=== PATIENT | male | born 1965 | race Caucasian/White ===

== ENCOUNTER 2017-03-02 10:24 | Emergency (ER) | payer BC ==
--- NOTE | 2017-03-02 10:54 | ERPHSYRPT ---
- History of Present Illness Time Seen by Provider: 03/02/17 10:34 Historian: patient Exam Limitations: no limitations Physician History: The patient is a 51-year-old male who suddenly became dizzy and slightly nauseated while working at his desk less than an hour ago. He got up, had a drink of water, and became sweaty. He did not vomit. Every time he stands up he feels unsteady. He does not feel like he is going to pass out. He also began to have a small amount of pinpoint chest pain in the left chest. When he puts his finger on the pain site, the pain goes away. He denies any viral illness at this time. He denies shortness of breath. His past medical history is significant for hypertension. Timing/Duration: hour(s) (1) Activities at Onset: other (sitting) Quality: stabbing Location: central Chest Pain Radiation: no radiation Severity of Pain-Max: mild Severity of Pain-Current: mild Modifying Factors: Improves With: nothing Associated Symptoms: nausea, dizziness, No palpitations, No shortness of breath Prior Chest Pain/Cardiac Workup: no prior chest pain Nitro Today/Relief: no nitro taken today Aspirin Treatment Today: no aspirin today Allergies/Adverse Reactions: No Known Drug Allergies Allergy (Verified 03/02/17 10:25) Home Medications: Naproxen 500 mg [Naprosyn 500 MG] mg PO BID 10/25/12 [History] Amlodipine Besylate/Benazepril [Amlodipine-Benazepril 2.5-10] 03/02/17 [History ] Hx Tetanus, Diphtheria Vaccination/Date Given: No - Review of Systems Constitutional: No Fever, No Chills Eyes: No Symptoms Ears, Nose, & Throat: No Symptoms Respiratory: No Cough, No Dyspnea Cardiac: Chest Pain Abdominal/Gastrointestinal: No Abdominal Pain, No Nausea, No Vomiting, No Diarrhea Genitourinary Symptoms: No Dysuria Musculoskeletal: No Back Pain, No Neck Pain Skin: No Rash Neurological: Dizziness Psychological: No Symptoms Endocrine: No Symptoms Hematologic/Lymphatic: No Symptoms Immunological/Allergic: No Symptoms All Other Systems: Reviewed and Negative - Past Medical History Pertinent Past Medical History: Yes Cardiac History: Hypertension Musculoskeletal History: Arthritis - Past Surgical History Past Surgical History: Yes Gastrointestinal: Hernia Repair Musculoskeletal: Orthopedic Surgery Other Surgical History: Sinus surgery, shoulder surgery - Social History Smoking Status: Never smoker Exposure to second hand smoke: No Drug Use: none Patient Lives Alone: No - Nursing Vital Signs Nursing Vital Signs: Initial Vital Signs Temperature 97.3 F 03/02/17 10:28 Pulse Rate 78 03/02/17 10:28 Respiratory Rate 20 03/02/17 10:28 Blood Pressure 135/92 03/02/17 10:28 O2 Sat by Pulse Oximetry 96 03/02/17 10:28 Pain Scale Pain Intensity 8 - Physical Exam General Appearance: no apparent distress, alert Eye Exam: PERRL/EOMI, eyes nml inspection Ears, Nose, Throat Exam: normal ENT inspection, moist mucous membranes Neck Exam: normal inspection, non-tender, supple, full range of motion Respiratory Exam: chest tenderness (Mild palpation of a pinpoint area to the left central anterior chest at the site of the patient's perceived pain, causes relief of the pain.) Cardiovascular Exam: regular rate/rhythm, normal heart sounds Gastrointestinal/Abdomen Exam: soft, No tenderness, No mass Rectal Exam: not done Back Exam: normal inspection, No CVA tenderness, No vertebral tenderness Extremity Exam: normal inspection, normal range of motion Neurologic Exam: other (Minh-Hallpike test elicits dizziness with prone to sitting position. Head movement from right to left and left to right is negative.) Skin Exam: normal color, warm, dry SpO2 Interpretation: normal - Course EKG Interpreted by Me: RATE, Sinus Rhythm, NORMAL AXIS, NORMAL INTERVALS, NORMAL QRS, NORMAL ST-T - Radiology Exams Chest X-ray Interpretation: Teleradiologist Report, Negative (per Dr Salgado) Ordered Tests: Active Orders 24 hr Category Date Time Status EKG-ER Only STAT Care 03/02/17 11:12 Active IV Insertion STAT Care 03/02/17 11:12 Active CHEST 2 VIEWS (PA AND LAT) Stat Exams 03/02/17 11:13 Completed CBC W DIFF Stat Lab 03/02/17 11:12 Completed CMP Stat Lab 03/02/17 10:50 Completed TROPONIN Q3H Lab 03/02/17 10:50 Completed TROPONIN Q3H Lab 03/02/17 14:15 Ordered TROPONIN Q3H Lab 03/02/17 17:15 Ordered TROPONIN Q3H Lab 03/02/17 20:15 Ordered TROPONIN Q3H Lab 03/02/17 23:15 Ordered UA W/RFX UR CULTURE Stat Lab 03/02/17 11:13 Completed Medication Summary Discontinued Medications Generic Name Dose Route Start Last Admin Trade Name Bo PRN Reason Stop Dose Admin Ondansetron HCl 4 mg 03/02/17 11:12 03/02/17 11:17 Zofran 4 Mg/2 Ml Vial IV 03/02/17 11:13 4 mg STAT ONE Administration Ondansetron HCl Confirm 03/02/17 11:16 Zofran 4 Mg/2 Ml Vial Administered 03/02/17 11:17 Dose 4 mg .ROUTE .STK-MED ONE Lab/Rad Data: Laboratory Result Diagrams 03/02/17 11:12 03/02/17 10:50 Laboratory Results 03/02/17 03/02/17 03/02/17 Range/Units 11:13 11:12 10:50 WBC 4.4 (4.0-10.5) K/mm3 RBC 4.95 (4.1-5.6) M/mm3 Hgb 13.9 (12.5-18.0) gm/dl Hct 42.2 (42-50) % MCV 85.3 (78-100) fl MCH 28.1 (26-32) pg MCHC 32.9 (32-36) g/dl RDW 13.5 (11.5-14.0) % Plt Count 280 (150-450) K/mm3 MPV 10.1 H (6-9.5) fl Gran % 64.1 (36.0-66.0) % Lymphocytes % 22.9 L (24.0-44.0) % Monocytes % 10.0 (0.0-12.0) % Eosinophils % 2.3 (0.00-5.0) % Basophils % 0.7 (0.0-0.4) % Basophils # 0.03 (0-0.4) Sodium (136-145) mEq/L Potassium (3.5-5.1) mEq/L Chloride (98-107) mEq/L Carbon Dioxide (21-32) mEq/L Anion Gap (5-15) MEQ/L BUN (9-20) mg/dL Creatinine (0.55-1.30) mg/dl Estimated GFR ML/MIN Glucose (70-110) MG/DL Calcium (8.5-10.1) mg/dL Total Bilirubin (0.2-1.0) mg/dL AST (15-37) U/L ALT (12-78) U/L Alkaline Phosphatase (46-116) U/L Troponin I < 0.017 (0.000-0.056) ng/ml Serum Total Protein (6.4-8.2) gm/dL Albumin (3.4-5.0) g/dL Ur Collection Type CCMS Urine Color YELLOW (YELLOW) Urine Appearance CLEAR (CLEAR) Urine pH 7.0 (5-6) Ur Specific Hazel 1.005 (1.005-1.025) Urine Protein NEGATIVE (Negative) Urine Ketones NEGATIVE (NEGATIVE) Urine Blood NEGATIVE (0-5) Morgan/ul Urine Nitrite NEGATIVE (NEGATIVE) Urine Bilirubin NEGATIVE (NEGATIVE) Urine Urobilinogen NORMAL (0-1) mg/dL Ur Leukocyte Esterase NEGATIVE (NEGATIVE) Urine Culture Reflexed NO (NO) Urine Glucose NEGATIVE (NEGATIVE) mg/dL Specimen Received 03/02 1140 03/02/17 Range/Units 10:50 WBC (4.0-10.5) K/mm3 RBC (4.1-5.6) M/mm3 Hgb (12.5-18.0) gm/dl Hct (42-50) % MCV (78-100) fl MCH (26-32) pg MCHC (32-36) g/dl RDW (11.5-14.0) % Plt Count (150-450) K/mm3 MPV (6-9.5) fl Gran % (36.0-66.0) % Lymphocytes % (24.0-44.0) % Monocytes % (0.0-12.0) % Eosinophils % (0.00-5.0) % Basophils % (0.0-0.4) % Basophils # (0-0.4) Sodium 139 (136-145) mEq/L Potassium 4.0 (3.5-5.1) mEq/L Chloride 103 (98-107) mEq/L Carbon Dioxide 25.8 (21-32) mEq/L Anion Gap 14.6 (5-15) MEQ/L BUN 14 (9-20) mg/dL Creatinine 1.20 (0.55-1.30) mg/dl Estimated GFR > 60 ML/MIN Glucose 108 (70-110) MG/DL Calcium 9.1 (8.5-10.1) mg/dL Total Bilirubin 0.30 (0.2-1.0) mg/dL AST 30 (15-37) U/L ALT 58 (12-78) U/L Alkaline Phosphatase 91 (46-116) U/L Troponin I (0.000-0.056) ng/ml Serum Total Protein 7.9 (6.4-8.2) gm/dL Albumin 3.9 (3.4-5.0) g/dL Ur Collection Type Urine Color (YELLOW) Urine Appearance (CLEAR) Urine pH (5-6) Ur Specific Hazel (1.005-1.025) Urine Protein (Negative) Urine Ketones (NEGATIVE) Urine Blood (0-5) Morgan/ul Urine Nitrite (NEGATIVE) Urine Bilirubin (NEGATIVE) Urine Urobilinogen (0-1) mg/dL Ur Leukocyte Esterase (NEGATIVE) Urine Culture Reflexed (NO) Urine Glucose (NEGATIVE) mg/dL Specimen Received - Progress Progress: improved Progress Note: 03/02/17 11:59 Pt feels "fine" after zofran 4 mg IV. Counseled pt/family regarding: lab results, diagnosis, rad results - Departure Time of Disposition: 12:00 Departure Disposition: Home Clinical Impression: Nausea Condition: Stable Critical Care Time: No Referrals: GEOFFREY HOLLINS [ACTIVE STAFF] - Additional Instructions: You have nausea that was greatly improved with Zofran 4 mg by IV in the ER. Take Zofran 4 mg ODT every 6 hours as needed for nausea. Follow-up as needed. Prescriptions: Ondansetron ODT 4 MG [Zofran Odt 4 mg] 1 tab PO Q6H PRN PRN #10 tab.rapdis PRN Reason: Nausea/Vomiting
[2017-03-02] MEDS ORDERED: Zofran 4 MG/2 ML VIAL IV ONE (11:12)
[2017-03-02] MEDS ORDERED: Zofran 4 MG/2 ML VIAL ONE (11:16)
[2017-03-02 11:19] LABS: BASOPHIL % 0.7 % (0.0-0.4); Basophil (Absolute #) 0.03 (0-0.4); Eosinophil % 2.3 % (0.00-5.0); Granulocyte Absolute (ANC) 2.84 (1.4-6.9); Granulocytes % 64.1 % (36.0-66.0); Hematocrit 42.2 % (42-50); Hemoglobin 13.9 gm/dl (12.5-18.0); Lymphocyte (Absolute #) 1.01 (1.0-4.6); Lymphocytes % 22.9 % (24.0-44.0); Mean Cell Volume 85.3 fl (78-100); Mean Corpuscular Hemoglobin 28.1 pg (26-32); Mean Corpuscular Hgb Concent. 32.9 g/dl (32-36); Mean Platelet Volume 10.1 fl (6-9.5); Monocyte (Absolute #) 0.44 (0.0-1.3); Platelet Count 280 K/mm3 (150-450); Red Blood Count 4.95 M/mm3 (4.1-5.6); Red Cell Distribution Width 13.5 % (11.5-14.0); White Blood Count 4.4 K/mm3 (4.0-10.5)
[2017-03-02 11:37] LABS: ALBUMIN 3.9 g/dL (3.4-5.0); ALKALINE PHOSPHATASE 91 U/L (46-116); ANION GAP 14.6 MEQ/L (5-15); BLOOD UREA NITROGEN 14 mg/dL (9-20); CHLORIDE 103 mEq/L (98-107); Calcium 9.1 mg/dL (8.5-10.1); Carbon Dioxide 25.8 mEq/L (21-32); EST GLOMERULAR FILTRATION RATE > 60 ML/MIN; Glucose 108 MG/DL (70-110); SGOT/AST 30 U/L (15-37); SGPT/ALT 58 U/L (12-78); SODIUM 139 mEq/L (136-145); Total Protein 7.9 gm/dL (6.4-8.2)
[2017-03-02 11:44] LABS: Appearance CLEAR (CLEAR); Bilirubin NEGATIVE (NEGATIVE); Blood NEGATIVE Ery/ul (0-5); Glucose NEGATIVE (NEGATIVE); Ketones NEGATIVE (NEGATIVE); Leukocyte Esterase NEGATIVE (NEGATIVE); Nitrite NEGATIVE (NEGATIVE); Protein,Urine Dip NEGATIVE (Negative); Specific Gravity 1.005 (1.005-1.025); Urobilinogen NORMAL mg/dL (0-1)
--- NOTE | 2017-03-02 11:44 | XRAY ---
Indication: Chest pain and dizziness. Comparison: August 29, 2009. PA/lateral chest again demonstrates normal heart and lungs. Bony thorax intact. No new/acute findings.
[2017-03-02 12:20] VITALS: BP 116/68; PULSE 57; O2SAT 98
== END 2017-03-02 12:22 | disposition home or self-care (01) ==
LOC: ED 10:24
DX: R11.0 Nausea (principal); R42 Dizziness and giddiness; R07.9 Chest pain, unspecified
CPT/HCPCS: 36000; 36415; 71046; 80053; 81002; 84484; 85025; 93005; 96374; 99284; J2405

== ENCOUNTER 2020-12-11 15:58 | Day surgery (SDC) | payer BC ==
[2012-10-25 11:50] VITALS: BP 145/98
[2020-12-11] MEDS ORDERED: DIPRIVAN 200 MG/20 ML IV ONE (15:59)
[2020-12-11] MEDS ORDERED: LIDOCAINE HCL 2% 100 MG/5 ML IJ ONE (15:59)
[2020-12-11] MEDS ORDERED: Depo-Medrol 40 MG/ML IM ONE (15:59)
[2020-12-11] MEDS ORDERED: Lactated Ringers 1,000 ML IV ONE (16:33)
--- NOTE | 2020-12-11 20:36 | XRAY ---
Indication: Bilateral L4-S1 MBB. Intraoperative fluoroscopy provided for 8 seconds. Single digital spot image submitted for interpretation demonstrates posterior needle tips projecting over the expected left and right L4-S1 nerve roots. Correlate with intraoperative findings/report.
--- NOTE | 2020-12-12 15:09 | XRAY ---
8 seconds of fluoroscopy was used in surgery for a bilateral L4-S1 MBB.
== END 2020-12-11 18:17 | disposition home or self-care (01) ==
LOC: SDC-PAIN 15:58
PROVIDERS: ATTEND Psychiatry & Neurology Pain Medicine
DX: M47.816 Spondylosis without myelopathy or radiculopathy, lumbar region (principal); Z79.899 Other long term (current) drug therapy
CPT/HCPCS: 64493; 64494; 72020; 77002; J1030; J2704

== ENCOUNTER 2022-02-12 08:27 | Day surgery (SDC) | payer BC ==
--- NOTE | 2022-02-10 14:41 | HP ---
DATE OF SURGERY: 02/12/2022 HISTORY OF PRESENT ILLNESS: The patient is a 56-year-old male presented with complaints of an umbilical hernia. He said this is getting bigger and having some pain with it. It is about 2 cm. PAST MEDICAL HISTORY: Hyperlipidemia. PAST SURGICAL HISTORY: Colonoscopy. ALLERGIES: NKDA. MEDICATIONS: Diclofenac, atorvastatin, Lotensin. FAMILY HISTORY: Colon cancer. SOCIAL HISTORY: Denies smoking, occasional alcohol. REVIEW OF SYSTEMS: CONSTITUTIONAL: Denies fever or chills. CHEST: Denies shortness of breath. CVS: Denies chest pain. ABDOMEN: Reports umbilical hernia pain. PHYSICAL EXAMINATION: GENERAL: No acute distress. CHEST: Nonlabored. No shortness of breath. CVS: Regular rate and rhythm. ABDOMEN: Soft. IMPRESSION: A 2 cm umbilical hernia. PLAN: Umbilical hernia repair with possible mesh with Dr. Manoj Carney. As dictated by Guerda Wright NP.
[~2022-02-12 08:27] MED LIST: Sensorcaine 0.25% 10 ML ONE
[2022-02-12] MEDS ORDERED: CEFAZOLIN 2 GM-D5W BAG** 2 GM/50 ML ML IV ONE (09:07)
[2022-02-12] MEDS ORDERED: Lactated Ringers 1,000 ML IV SCH (09:30)
[2022-02-12] MEDS ORDERED: CEFAZOLIN 2 GM-D5W BAG** 2 GM/50 ML ML IV SCH (09:30)
[2022-02-12] MEDS ORDERED: Decadron 4 MG INJ ONE (10:39)
[2022-02-12] MEDS ORDERED: Zofran 4 MG/2 ML VIAL ONE (10:39)
[2022-02-12] MEDS ORDERED: Xylocaine-Mpf 2% 5 Ml Vial ONE (10:39)
[2022-02-12] MEDS ORDERED: Quelicin Fliptop 200 MG/10 ML ONE (10:39)
[2022-02-12] MEDS ORDERED: Versed 2 MG/2 ML Injection ONE (10:40)
[2022-02-12] MEDS ORDERED: DIPRIVAN 200 MG/20 ML IV ONE (10:40)
[2022-02-12] MEDS ORDERED: SUBLIMAZE 100 MCG/2 ML ONE ×2 (10:40→11:08)
[2022-02-12] MEDS ORDERED: DEXMEDETOMIDINE 80 MCG/20ML-NS IV ONE (10:42)
[2022-02-12] MEDS ORDERED: Pre-Attached Lta Kit TP ONE (10:45)
[2022-02-12] MEDS ORDERED: OFIRMEV 100 ML IV ONE (10:45)
[2022-02-12] MEDS ORDERED: KEFZOL 1 GM ONE (10:55)
[2022-02-12] MEDS ORDERED: Ephedrine Sulfate 50 MG/ML ONE (10:57)
[2022-02-12] MEDS ORDERED: Lactated Ringers 1,000 ML IV ONE (11:09)
[2022-02-12] MEDS ORDERED: NORCO 5/325 MG PO PRN (12:21)
[2022-02-12 12:57] VITALS: PULSE 77
[2022-02-12 13:10] VITALS: BP 140/93; O2SAT 92
--- NOTE | 2022-02-12 13:23 | OP ---
SURGERY DATE/TIME: 02/12/2022 1037 PREOPERATIVE DIAGNOSES: 1) Umbilical hernia. 2) Screening. POSTOPERATIVE DIAGNOSES: 1) A 1 cm umbilical hernia. 2) Mid sigmoid a 3 mm polyp. PROCEDURES: 1) Open umbilical herniorrhaphy 2) Colonoscopy complete to cecum with hot polypectomy mid sigmoid 3 mm. SURGEON: Manoj Carney M.D. ANESTHESIA: General. COMPLICATIONS: None. CONDITION: Stable. DESCRIPTION OF PROCEDURE: Patient taken to surgery. General anesthetic. Infraumbilical incision. A 1 cm hernia was repaired with three sutures #0 Prolene which were all placed and all tied down. Good approximation and hemostasis. No tension. Skin closed with 4-0 Vicryl, compressive umbilical dressing. The scope was advanced to the cecum. Base of the cecum, ileocecal valve, appendiceal orifice satisfactory. Ascending, hepatic, transverse, splenic, descending, sigmoid. Mid sigmoid a 3 mm polyp taken with hot biopsy forceps to extinction. Rectum, anus satisfactory. Follow up five years.
== END 2022-02-12 13:08 | disposition home or self-care (01) ==
LOC: SDC 08:27
PROVIDERS: ATTEND Surgery
DX: Z12.11 Encounter for screening for malignant neoplasm of colon (principal); Z80.0 Family history of malignant neoplasm of digestive organs; K42.9 Umbilical hernia without obstruction or gangrene; K63.5 Polyp of colon
CPT/HCPCS: J0330; J0690; J1100; J2250; J2405; J2704; J3010; A9270-GY

== ENCOUNTER 2023-09-01 14:37 | Observation (INO) | payer BC ==
[2023-09-01] MEDS ORDERED: TORAdol 30 mg Injection ONE (14:50)
[2023-09-01] MEDS ORDERED: BABY ASPIRIN 81 MG CHEW ONE (14:50)
[2023-09-01] MEDS: BABY ASPIRIN 81 MG CHEW PO ONE (14:51)
[2023-09-01] MEDS: TORAdol 30 mg Injection IV ONE (14:51)
[2023-09-01 14:56] LABS: Absolute Neutrophil Ct (ANC) 5.55 x10^3/uL (1.78-5.38); BASOPHIL % 0.4 % (0.2-1.2); Basophil (Absolute #) 0.03 x10^3/uL (0.01-0.08); Eosinophil % 1.1 % (0.8-7.0); Eosinophil (Absolute #) 0.08 x10^3/uL (0.04-0.54); Hematocrit 39.8 % (40.1-51.0); Hemoglobin 13.3 g/dL (13.7-17.5); IMMATURE GRAN # 0.02 x10^3u/L (0.001-0.031); IMMATURE GRAN % 0.3 % (0.001-0.429); Lymphocyte (Absolute #) 1.21 x10^3/uL (1.32-3.57); Lymphocytes % 16.2 % (21.8-53.1); Mean Cell Volume 86.1 fL (79.0-92.2); Mean Corpuscular Hemoglobin 28.8 pg (25.7-32.2); Mean Corpuscular Hgb Concent. 33.4 g/dL (32.3-36.5); Monocyte (Absolute #) 0.58 x10^3/uL (0.30-0.82); Monocytes % 7.8 % (5.3-12.2); Neutrophil % 74.2 % (34.0-67.9); Platelet Count 326 x10^3/uL (163-337); Red Blood Count 4.62 x10^6/uL (4.63-6.08); Red Cell Distribution Width 13.7 % (11.6-14.4); White Blood Count 7.5 x10^3/uL (4.23-9.07)
[2023-09-01 15:15] LABS: ALBUMIN 4.6 g/dL (3.5-5.0); ANION GAP 13.5 MEQ/L (5-15); BILIRUBIN,TOTAL 0.5 mg/dL (0.2-1.3); Calcium 9.7 mg/dL (8.4-10.2); Creatinine 1 1.65 mg/dL (0.66-1.25); EST GLOMERULAR FILTRATION RATE 48.1 ML/MIN; NT PRO BNPII 27.4 pg/mL (<300); Potassium 4.7 mmol/L (3.5-5.1); Total Protein 7.8 g/dL (6.3-8.2)
--- NOTE | 2023-09-01 15:16 | XRAY ---
Indication: Chest pain. Comparison: March 02, 2017 Portable chest again demonstrates normal heart and lungs with a few incidental tiny calcified granulomas. Bony thorax intact. No new/acute findings.
[2023-09-01] MEDS ORDERED: Sodium Chloride 0.9% 1000 ML 1,000 ML ONE (15:37)
[2023-09-01] MEDS: Sodium Chloride 0.9% 1000 ML 1,000 ML IV STA (15:42)
[2023-09-01 16:07] LABS: ADD URINE CULTURE? NO (NO); Appearance Clear (Clear); Bacteria None Seen /HPF (None Seen); Bilirubin Negative (Negative); Blood Negative (Negative); Epithelial Cells None Seen /HPF (None Seen); Glucose, Urine Negative (Negative); Ketones Trace (Negative); Leukocyte Esterase Negative (Negative); Nitrite Negative (Negative); Protein,Urine Dip Negative (Negative); RBC 0-2 /HPF (0-5); Urobilinogen 0.2 mg/dL (0.2); WBC 0-2 /HPF (0-5)
--- NOTE | 2023-09-01 16:07 | ERPHSYRPT ---
- History of Present Illness Time Seen by Provider: 09/01/23 14:42 Source: patient Exam Limitations: no limitations Patient Subjective Stated Complaint: chest pain for the past couple of weeks that causes nausea and lightheadedness Triage Nursing Assessment: Pt brought self to the ER, vitals wnl, denies pain at this time, c/o of ongoing pressure for the past 2 weeks and also if he bends over he feels like he is going to pass out, pulses normal, skin n/w/d, no edema, no difficulty breathing Physician History: Patient is brought into the emergency department for 1 to 2 weeks of unstable angina. Patient states he feels very short of breath anytime he does any activity. Feels like he is going to pass out. States that he feels shortness of breath while walking up steps. Describes that he has some chest tightness with this as well. Patient has a history of hypertension, hyperlipidemia. Patient does have some low blood pressure today. States he has been taking all of his medication as prescribed. He has no falls or trauma. Echo and stress test were performed several years ago and these were presumably normal. 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 Allergies/Adverse Reactions: No Known Drug Allergies Allergy (Verified 09/01/23 14:48) Home Medications: Atorvastatin Calcium 20 mg PO DAILY 01/30/22 [History] Amlodipine Besylate/Benazepril [Amlodipine-Benazepril 5-40 mg] 1 each PO DAILY 09/01/23 [History] Hx Tetanus, Diphtheria Vaccination/Date Given: No Hx Influenza Vaccination/Date Given: No Hx Pneumococcal Vaccination/Date Given: No Travel Risk - International Travel Have you traveled outside of the country in past 3 weeks: No - Emerging Infectious Disease Are you exhibiting symptoms associated with any current EIDs: No - Past Medical History Pertinent Past Medical History: Yes Neurological History: No Pertinent History ENT History: No Pertinent History Cardiac History: Hypertension Respiratory History: No Pertinent History Endocrine Medical History: No Pertinent History Musculoskeletal History: Arthritis GI Medical History: No Pertinent History History: No Pertinent History Psycho-Social History: No Pertinent History Male Reproductive Disorders: No Pertinent History - Past Surgical History Past Surgical History: Yes Neuro Surgical History: No Pertinent History Cardiac: No Pertinent History Respiratory: No Pertinent History Gastrointestinal: Hernia Repair Genitourinary: No Pertinent History Musculoskeletal: Orthopedic Surgery Male Surgical History: Vasectomy Other Surgical History: Sinus surgery, shoulder surgery, jonny inguinal hernia repair - Social History Smoking Status: Never smoker Exposure to second hand smoke: No Drug Use: none Patient Lives Alone: No - Social Determinants of Health Will the patient participate in the screening: Yes Do you worry about a steady place to live?: No Do you have any problems with any of the following?: No known problems In the past 12 months,have you had to go without utilities?: No Transportation Issues: No Has anyone in your support network made you feel unsafe?: No Have you or anyone in your house had to go without enough: No - Nursing Vital Signs Nursing Vital Signs: Initial Vital Signs Temperature 96.7 F 09/01/23 14:39 Pulse Rate 75 09/01/23 14:39 Blood Pressure 104/74 09/01/23 14:39 O2 Sat by Pulse Oximetry 96 09/01/23 14:39 Pain Scale Pain Intensity 1 - Physical Exam SpO2 Interpretation: normal SpO2: 96 Comments: 09/01/23 16:03 Review of Systems Constitutional: Negative for fever. HENT: Negative for congestion. Respiratory: Shortness of breath with exertion Cardiovascular: Chest tightness Gastrointestinal: Negative for abdominal pain. Genitourinary: Negative for dysuria. Musculoskeletal: Negative for back pain. Skin: Negative for rash. Neurological: Negative for headaches. Psychiatric/Behavioral: Negative for behavioral problems. All other systems reviewed and are negative. Physical Exam Vitals signs and nursing note reviewed. Constitutional: Appearance: Patient is well-developed. HENT: Head: Normocephalic and atraumatic. Eyes: Conjunctiva/sclera: Conjunctivae normal. Neck: Musculoskeletal: Normal range of motion. Trachea: No tracheal deviation. Cardiovascular: Rate and Rhythm: Normal rate. Pulmonary: Effort: Pulmonary effort is normal. No respiratory distress. Abdominal: Palpations: Abdomen is soft. Musculoskeletal: General: No deformity. Skin: General: Skin is warm and dry. Neurological/ Psychiatric: Mental Status: Mental status, behavior, interaction with environment is appropriate for patient's age and condition - Course Nursing assessment & vital signs reviewed: Yes EKG Interpreted by Me: Sinus Rhythm (Sinus rhythm, rate of 89, [place] interval 133, QRS 90, QTc 4 7, no STEMI, no other obvious ST changes inverted T waves in aVR) Ordered Tests: Active Orders 24 hr Category Date Time Status Call Admit Doctor for Orders ON ADMISSION Care 09/01/23 15:56 Active Director Of Construction STAT Care 09/01/23 14:46 Active Code Status Order ROUTINE Care 09/01/23 15:56 Active EKG-ER Only STAT Care 09/01/23 14:46 Active IV Insertion STAT Care 09/01/23 14:[address] in Observation ROUTINE Care 09/01/23 15:56 Active Telemetry q6h Care 09/01/23 15:57 Active Heart-Healthy Diet Diet 09/02/23 Breakfast Active CHEST 1 VIEW (PORTABLE) Stat Exams 09/01/23 14:46 Completed CBC W DIFF Stat Lab 09/01/23 14:39 Completed CK-Creatinine Phosphokinase Stat Lab 09/01/23 14:39 Completed CMP Stat Lab 09/01/23 14:39 Completed NT PRO BNPII Stat Lab 09/01/23 14:39 Completed TROPONIN Q4H Lab 09/01/23 14:39 Completed TROPONIN Q4H Lab 09/01/23 19:00 Ordered TROPONIN Q4H Lab 09/01/23 23:00 Ordered UA W/RFX UR CULTURE Stat Lab 09/01/23 15:11 Received Pulse Oximetry CONTINUOUS RT 09/01/23 15:57 Active Transfer Order Routine Transfer 09/01/23 Ordered Medication Summary Generic Name Dose Route Start Last Admin Trade Name Freq PRN Reason Stop Dose Admin Sodium Chloride 1,000 mls @ 999 mls/hr 09/01/23 15:40 09/01/23 15:42 Sodium Chloride 0.9% 1000 Ml IV 09/01/23 16:40 999 mls/hr .Q1H1M STA Administration Discontinued Medications Generic Name Dose Route Start Last Admin Trade Name Freq PRN Reason Stop Dose Admin Aspirin 324 mg 09/01/23 14:46 09/01/23 14:51 Aspirin 81 Mg Tab.Chew PO 09/01/23 14:47 324 mg STAT ONE Administration Aspirin Confirm 09/01/23 14:50 Aspirin 81 Mg Tab.Chew Administered 09/01/23 14:51 Dose 324 mg .ROUTE .STK-MED ONE Sodium Chloride Confirm 09/01/23 15:37 Sodium Chloride 0.9% 1000 Ml Administered 09/01/23 15:38 Dose 1,000 mls @ ud .ROUTE .STK-MED ONE Ketorolac Tromethamine 30 mg 09/01/23 14:47 09/01/23 14:51 Ketorolac Tromethamine 30 Mg/Ml Inj IV 09/01/23 14:48 30 mg STAT ONE Administration Ketorolac Tromethamine Confirm 09/01/23 14:50 Ketorolac Tromethamine 30 Mg/Ml Inj Administered 09/01/23 14:51 Dose 30 mg .ROUTE .STK-MED ONE Lab/Rad Data: Laboratory Result Diagrams 09/01/23 14:39 09/01/23 14:39 Laboratory Results 09/01/23 09/01/23 09/01/23 Range/Units 14:39 14:39 14:39 WBC 7.5 (4.23-9.07) x10^3/uL RBC 4.62 L (4.63-6.08) x10^6/uL Hgb 13.3 L (13.7-17.5) g/dL Hct 39.8 L (40.1-51.0) % MCV 86.1 (79.0-92.2) fL MCH 28.8 (25.7-32.2) pg MCHC 33.4 (32.3-36.5) g/dL RDW 13.7 (11.6-14.4) % Plt Count 326 (163-337) x10^3/uL MPV 10.0 (9.4-12.4) fL Gran % 74.2 H (34.0-67.9) % Immature Gran % (Auto) 0.3 (0.001-0.429) % Nucleat RBC Rel Count 0.0 (0.00-0.2) % Eos # (Auto) 0.08 (0.04-0.54) x10^3/uL Immature Gran # (Auto) 0.02 (0.001-0.031) x10^3u/L Absolute Lymphs (auto) 1.21 L (1.32-3.57) x10^3/uL Absolute Monos (auto) 0.58 (0.30-0.82) x10^3/uL Absolute Nucleated RBC 0.00 (0.00-0.012) x10^3u/L Lymphocytes % 16.2 L (21.8-53.1) % Monocytes % 7.8 (5.3-12.2) % Eosinophils % 1.1 (0.8-7.0) % Basophils % 0.4 (0.2-1.2) % Absolute Granulocytes 5.55 H (1.78-5.38) x10^3/uL Basophils # 0.03 (0.01-0.08) x10^3/uL Sodium 138 (135-145) mmol/L Potassium 4.7 (3.5-5.1) mmol/L Chloride 106 (98-107) mmol/L Carbon Dioxide 23 (22-30) mmol/L Anion Gap 13.5 (5-15) MEQ/L BUN 30 H (9-20) mg/dL Creatinine 1.65 H (0.66-1.25) mg/dL Estimated GFR 48.1 ML/MIN Glucose 118 H (74-106) mg/dL Calcium 9.7 (8.4-10.2) mg/dL Total Bilirubin 0.50 (0.2-1.3) mg/dL AST 42 (17-59) U/L ALT 95 H (0-50) U/L Alkaline Phosphatase 75 (38-126) U/L Creatine Kinase 110 (55-170) U/L Troponin I < 0.012 (0.000-0.033) ng/mL NT-Pro-B Natriuret Pep 27.4 (<300) pg/mL Serum Total Protein 7.8 (6.3-8.2) g/dL Albumin 4.6 (3.5-5.0) g/dL - Progress Progress: improved Progress Note: 09/01/23 16:04 Differential diagnosis includes: PNA, STEMI, NSTEMI, other infection, musculoskeletal pain, pneumothorax - We'll obtain basic labs, fluids, EKG, troponin, chest x-ray - EKG shows no ST changes - my read - O2 saturations consistently greater than 95%. - CXR shows no pneumonia, pneumothorax - my read Patient's first troponin was negative. EKG as above shows no obvious new ST changes. Story is concerning enough for unstable angina. Heart score 4. Given all of this I did discuss with our hospitalist, Dr. Christie. Given overall picture we did make decision to admit patient to observation in the hospital overnight. Potential cardiology consult and stress test in the morning depending on symptoms and reevaluation. Discussed with Dr.: Other (Dr. Stewart) Counseled pt/family regarding: lab results, diagnosis, need for follow-up, rad results - Departure Departure Disposition: Observation Clinical Impression: Unstable angina, Chest pain Condition: Stable Critical Care Time: No Referrals: VALERIE JORGE MD [Primary Care Provider] - Follow up/PCP as directed
--- NOTE | 2023-09-01 17:05 | PCM.HP ---
<TAMRA HEATH - Last Filed: 09/01/23 16:58> History of Present Illness - Chief Complaint Chief Complaint: chest pain Date: 09/01/23 History of Present Illness: Mr Huggins is a 58 year old male with a pmhx of HTN and HLD that presented to ED 09/01/23 with complaints of chest pain that began initially 2-3 weeks ago. The chest pain was occurring intermittently over the past several weeks but over the past two days has become constant. He describes the pain as pressure-like with associated nausea, shortness of breath, dizziness, and diaphoresis. No radiation. No aggravating/relieving factors. No past cardiac history or prior chest pain. Patient also reports increased fatigue over the past three months, leg cramps, and frequent urination at night. He has had a recent weight loss of 20 pounds with diet and exercise. He states he has been taking diclofenac recently for joint pain. Upon presentation, vitals stable although patient did have BP of 90s/60s. CXR showing no cardiopulmonary processes. EKG NS with no ST elevation/deviation per ED physician read. Lab findings remarkable for normocytic anemia with hgb of 13.3, SLIM with creat at 1.65/bun 30, ALT 95. BNP/ initial troponin WNL. Patient received fluid bolus, ASA, and toradol in ED. - Review of Systems Constitutional: Fatigue, Weakness Eyes: No Symptoms Ears, Nose, & Throat: No Symptoms Respiratory: Short Of Breath Cardiac: Chest Pain Abdominal/Gastrointestinal: No Symptoms Genitourinary Symptoms: Frequency (at night) Musculoskeletal: No Symptoms Skin: No Symptoms Neurological: Dizziness Psychological: No Symptoms Endocrine: No Symptoms Hematologic/Lymphatic: No Symptoms Immunological/Allergic: No Symptoms Medications & Allergies Home Medications: Home Medication List Atorvastatin Calcium 20 mg PO DAILY 01/30/22 [History Confirmed 09/01/23] Amlodipine Besylate/Benazepril [Amlodipine-Benazepril 5-40 mg] 1 cap PO DAILY 09/01/23 [History Confirmed 09/01/23] Diclofenac Sodium 50 mg [Voltaren 50 mg] 75 mg PO DAILY 09/01/23 [History Confirmed 09/01/23] Allergies/Adverse Reactions: Allergies Allergy/AdvReac Type Severity Reaction Status Date / Time No Known Drug Allergies Allergy Verified 09/01/23 14:48 - Past Medical History Past Medical History: Yes Neurological History: No Pertinent History ENT History: No Pertinent History Cardiac History: Hypertension Respiratory History: No Pertinent History Endocrine Medical History: No Pertinent History Musculoskelatal History: Arthritis GI Medical History: No Pertinent History History: No Pertinent History Pyscho-Social History: No Pertinent History Male Reproductive Disorders: No Pertinent History - Past Surgical History Past Surgical History: Yes Neuro Surgical History: No Pertinent History Cardiac History: No Pertinent History Respiratory Surgery: No Pertinent History GI Surgical History: Hernia Repair Genitourinary Surgical Hx: No Pertinent History Musculskeletal Surgical Hx: Orthopedic Surgery Male Surgical History: Vasectomy Other Surgical History: Sinus surgery, shoulder surgery, jonny inguinal hernia repair - Social History Smoking Status: Never smoker Exposure to second hand smoke: No Alcohol: Occasionally Drug Use: none - Social Determinants of Health Will the patient participate in the screening: Yes Do you worry about a steady place to live?: No Do you have any problems with any of the following?: No known problems In the past 12 months,have you had to go without utilities?: No Have you or anyone in your house had to go without enough: No Transportation Issues: No Has anyone in your support network made you feel unsafe?: No - Physical Exam Vital Signs: Vital Signs - 24 hr Temp Pulse Resp BP BP Pulse Ox 09/01/23 16:07 96 09/01/23 15:30 64 16 104/66 96 09/01/23 15:15 73 19 91/63 96 09/01/23 15:00 72 21 111/75 97 09/01/23 14:50 72 16 98/62 96 09/01/23 14:39 96.7 F 75 104/74 96 General Appearance: no apparent distress Neurologic Exam: alert, oriented x 3, cooperative Eye Exam: PERRL/EOMI Respiratory Exam: normal breath sounds, lungs clear Cardiovascular Exam: regular rate/rhythm, normal heart sounds Rectal Exam: deferred Back Exam: normal inspection Extremity Exam: normal inspection Skin Exam: normal color Results - Labs Lab/Micro Results: Lab Results-Last 24 Hours 09/01/23 09/01/23 09/01/23 Range/Units 14:39 14:39 14:39 WBC 7.5 (4.23-9.07) x10^3/uL RBC 4.62 L (4.63-6.08) x10^6/uL Hgb 13.3 L (13.7-17.5) g/dL Hct 39.8 L (40.1-51.0) % MCV 86.1 (79.0-92.2) fL MCH 28.8 (25.7-32.2) pg MCHC 33.4 (32.3-36.5) g/dL RDW 13.7 (11.6-14.4) % Plt Count 326 (163-337) x10^3/uL MPV 10.0 (9.4-12.4) fL Gran % 74.2 H (34.0-67.9) % Immature Gran % (Auto) 0.3 (0.001-0.429) % Nucleat RBC Rel Count 0.0 (0.00-0.2) % Eos # (Auto) 0.08 (0.04-0.54) x10^3/uL Immature Gran # (Auto) 0.02 (0.001-0.031) x10^3u/L Absolute Lymphs (auto) 1.21 L (1.32-3.57) x10^3/uL Absolute Monos (auto) 0.58 (0.30-0.82) x10^3/uL Absolute Nucleated RBC 0.00 (0.00-0.012) x10^3u/L Lymphocytes % 16.2 L (21.8-53.1) % Monocytes % 7.8 (5.3-12.2) % Eosinophils % 1.1 (0.8-7.0) % Basophils % 0.4 (0.2-1.2) % Absolute Granulocytes 5.55 H (1.78-5.38) x10^3/uL Basophils # 0.03 (0.01-0.08) x10^3/uL Sodium 138 (135-145) mmol/L Potassium 4.7 (3.5-5.1) mmol/L Chloride 106 (98-107) mmol/L Carbon Dioxide 23 (22-30) mmol/L Anion Gap 13.5 (5-15) MEQ/L BUN 30 H (9-20) mg/dL Creatinine 1.65 H (0.66-1.25) mg/dL Estimated GFR 48.1 ML/MIN Glucose 118 H (74-106) mg/dL Calcium 9.7 (8.4-10.2) mg/dL Total Bilirubin 0.50 (0.2-1.3) mg/dL AST 42 (17-59) U/L ALT 95 H (0-50) U/L Alkaline Phosphatase 75 (38-126) U/L Creatine Kinase 110 (55-170) U/L Troponin I < 0.012 (0.000-0.033) ng/mL NT-Pro-B Natriuret Pep 27.4 (<300) pg/mL Serum Total Protein 7.8 (6.3-8.2) g/dL Albumin 4.6 (3.5-5.0) g/dL Urine Color (Yellow) Urine Appearance (Clear) Urine pH (4.6-8.0) Ur Specific [place] (1.005-1.030) Urine Protein (Negative) Urine Glucose (UA) (Negative) mg/dL Urine Ketones (Negative) Urine Blood (Negative) Urine Nitrite (Negative) Urine Bilirubin (Negative) Urine Urobilinogen (0.2) mg/dL Ur Leukocyte Esterase (Negative) U Hyaline Cast (Auto) (0-2) /LPF Urine Microscopic RBC (0-5) /HPF Urine Microscopic WBC (0-5) /HPF Ur Epithelial Cells (None Seen) /HPF Urine Bacteria (None Seen) /HPF Urine Culture Reflexed (NO) 09/01/23 Range/Units 15:11 WBC (4.23-9.07) x10^3/uL RBC (4.63-6.08) x10^6/uL Hgb (13.7-17.5) g/dL Hct (40.1-51.0) % MCV (79.0-92.2) fL MCH (25.7-32.2) pg MCHC (32.3-36.5) g/dL RDW (11.6-14.4) % Plt Count (163-337) x10^3/uL MPV (9.4-12.4) fL Gran % (34.0-67.9) % Immature Gran % (Auto) (0.001-0.429) % Nucleat RBC Rel Count (0.00-0.2) % Eos # (Auto) (0.04-0.54) x10^3/uL Immature Gran # (Auto) (0.001-0.031) x10^3u/L Absolute Lymphs (auto) (1.32-3.57) x10^3/uL Absolute Monos (auto) (0.30-0.82) x10^3/uL Absolute Nucleated RBC (0.00-0.012) x10^3u/L Lymphocytes % (21.8-53.1) % Monocytes % (5.3-12.2) % Eosinophils % (0.8-7.0) % Basophils % (0.2-1.2) % Absolute Granulocytes (1.78-5.38) x10^3/uL Basophils # (0.01-0.08) x10^3/uL Sodium (135-145) mmol/L Potassium (3.5-5.1) mmol/L Chloride (98-107) mmol/L Carbon Dioxide (22-30) mmol/L Anion Gap (5-15) MEQ/L BUN (9-20) mg/dL Creatinine (0.66-1.25) mg/dL Estimated GFR ML/MIN Glucose (74-106) mg/dL Calcium (8.4-10.2) mg/dL Total Bilirubin (0.2-1.3) mg/dL AST (17-59) U/L ALT (0-50) U/L Alkaline Phosphatase (38-126) U/L Creatine Kinase (55-170) U/L Troponin I (0.000-0.033) ng/mL NT-Pro-B Natriuret Pep (<300) pg/mL Serum Total Protein (6.3-8.2) g/dL Albumin (3.5-5.0) g/dL Urine Color Yellow (Yellow) Urine Appearance Clear (Clear) Urine pH 5.0 (4.6-8.0) Ur Specific [place] 1.020 (1.005-1.030) Urine Protein Negative (Negative) Urine Glucose (UA) Negative (Negative) mg/dL Urine Ketones Trace A (Negative) Urine Blood Negative (Negative) Urine Nitrite Negative (Negative) Urine Bilirubin Negative (Negative) Urine Urobilinogen 0.2 (0.2) mg/dL Ur Leukocyte Esterase Negative (Negative) U Hyaline Cast (Auto) 11-20 (0-2) /LPF Urine Microscopic RBC 0-2 (0-5) /HPF Urine Microscopic WBC 0-2 (0-5) /HPF Ur Epithelial Cells None Seen (None Seen) /HPF Urine Bacteria None Seen (None Seen) /HPF Urine Culture Reflexed NO (NO) - Radiology Impressions Radiology Exams & Impressions: Radiology Procedures Category Date Time Status CHEST 1 VIEW (PORTABLE) Stat Exams 09/01/23 14:46 Completed Assessment/Plan (1) Chest pain Current Visit: Yes Status: Acute Assessment & Plan: -Repeat EKG in a.m -Initial trops reviewed and WNL, continue series -BNP WNL -cardiology consult -echo -lipid Code(s): R07.9 - CHEST PAIN, UNSPECIFIED (2) SLIM (acute kidney injury) Current Visit: Yes Status: Acute Assessment & Plan: -?secondary to NSAID/hypovolemia -baseline creat around 1 according to past labs -Avoid FRANK/ARB/NSAIDS/ diuretics -IVF -Monitor renal/lytes daily Code(s): N17.9 - ACUTE KIDNEY FAILURE, UNSPECIFIED (3) HTN (hypertension) Current Visit: Yes Status: Acute Assessment & Plan: -Stable - noted hypotension in ED, will hold BP meds for now Code(s): I10 - ESSENTIAL (PRIMARY) HYPERTENSION (4) HLD (hyperlipidemia) Current Visit: Yes Status: Acute Assessment & Plan: -continue statin Code(s): E78.5 - HYPERLIPIDEMIA, UNSPECIFIED (5) Nocturia Current Visit: Yes Status: Acute Assessment & Plan: -check ua/a1c/psa Code(s): R35.1 - NOCTURIA (6) Dizziness Current Visit: Yes Status: Acute Assessment & Plan: -orthostatic vitals -hypotensive on arrival - hold bp meds for now - monitor -IVF -consider CT head if no improvement -strict I&O -Echo VTE: bilateral SCD PPI: protonix Dispo: 1-2 days Code status: full code Code(s): R42 - DIZZINESS AND GIDDINESS Telemedicine Encounter - Telemedicine Encounter Telemedicine Encounter: "The entirety of this encounter was performed via Telemedicine" This visit was performed using real-time audio and video connection between my location and thepatients locationwith the assistance of a surrogateat the patients location. Written or verbal consent was obtained from the patient/ guardian to perform this visit using[employer] technology. Any patient questions regarding the telemedicine interaction were answered. <ROJAS GAINES - Last Filed: 09/01/23 20:40> History of Present Illness - Chief Complaint History of Present Illness: is a 58 year old male. - Physical Exam Vital Signs: Vital Signs - 24 hr Temp Pulse Resp BP BP Pulse Ox 09/01/23 20:00 97.4 F 64 16 144/67 96 09/01/23 17:31 60 16 95 09/01/23 16:32 97.6 F 58 L 20 132/71 94 L 09/01/23 16:07 96 09/01/23 15:30 64 16 104/66 96 09/01/23 15:15 73 19 91/63 96 09/01/23 15:00 72 21 111/75 97 09/01/23 14:50 72 16 98/62 96 09/01/23 14:39 96.7 F 75 104/74 96 Results - Labs Lab/Micro Results: Lab Results-Last 24 Hours 09/01/23 09/01/23 09/01/23 Range/Units 14:39 14:39 14:39 WBC 7.5 (4.23-9.07) x10^3/uL RBC 4.62 L (4.63-6.08) x10^6/uL Hgb 13.3 L (13.7-17.5) g/dL Hct 39.8 L (40.1-51.0) % MCV 86.1 (79.0-92.2) fL MCH 28.8 (25.7-32.2) pg MCHC 33.4 (32.3-36.5) g/dL RDW 13.7 (11.6-14.4) % Plt Count 326 (163-337) x10^3/uL MPV 10.0 (9.4-12.4) fL Gran % 74.2 H (34.0-67.9) % Immature Gran % (Auto) 0.3 (0.001-0.429) % Nucleat RBC Rel Count 0.0 (0.00-0.2) % Eos # (Auto) 0.08 (0.04-0.54) x10^3/uL Immature Gran # (Auto) 0.02 (0.001-0.031) x10^3u/L Absolute Lymphs (auto) 1.21 L (1.32-3.57) x10^3/uL Absolute Monos (auto) 0.58 (0.30-0.82) x10^3/uL Absolute Nucleated RBC 0.00 (0.00-0.012) x10^3u/L Lymphocytes % 16.2 L (21.8-53.1) % Monocytes % 7.8 (5.3-12.2) % Eosinophils % 1.1 (0.8-7.0) % Basophils % 0.4 (0.2-1.2) % Absolute Granulocytes 5.55 H (1.78-5.38) x10^3/uL Basophils # 0.03 (0.01-0.08) x10^3/uL Sodium 138 (135-145) mmol/L Potassium 4.7 (3.5-5.1) mmol/L Chloride 106 (98-107) mmol/L Carbon Dioxide 23 (22-30) mmol/L Anion Gap 13.5 (5-15) MEQ/L BUN 30 H (9-20) mg/dL Creatinine 1.65 H (0.66-1.25) mg/dL Estimated GFR 48.1 ML/MIN Glucose 118 H (74-106) mg/dL Hemoglobin A1c (4.5-6.0) % Calcium 9.7 (8.4-10.2) mg/dL Magnesium (1.6-2.3) mg/dL Total Bilirubin 0.50 (0.2-1.3) mg/dL AST 42 (17-59) U/L ALT 95 H (0-50) U/L Alkaline Phosphatase 75 (38-126) U/L Creatine Kinase 110 (55-170) U/L Troponin I < 0.012 (0.000-0.033) ng/mL NT-Pro-B Natriuret Pep 27.4 (<300) pg/mL Serum Total Protein 7.8 (6.3-8.2) g/dL Albumin 4.6 (3.5-5.0) g/dL PSA Screen (0-4) ng/mL Vitamin B12 (239-931) pg/mL TSH 3rd Generation (0.470-4.680) mIU/L Urine Color (Yellow) Urine Appearance (Clear) Urine pH (4.6-8.0) Ur Specific [place] (1.005-1.030) Urine Protein (Negative) Urine Glucose (UA) (Negative) mg/dL Urine Ketones (Negative) Urine Blood (Negative) Urine Nitrite (Negative) Urine Bilirubin (Negative) Urine Urobilinogen (0.2) mg/dL Ur Leukocyte Esterase (Negative) U Hyaline Cast (Auto) (0-2) /LPF Urine Microscopic RBC (0-5) /HPF Urine Microscopic WBC (0-5) /HPF Ur Epithelial Cells (None Seen) /HPF Urine Bacteria (None Seen) /HPF Urine Culture Reflexed (NO) 09/01/23 09/01/23 09/01/23 Range/Units 14:39 14:39 14:39 WBC (4.23-9.07) x10^3/uL RBC (4.63-6.08) x10^6/uL Hgb (13.7-17.5) g/dL Hct (40.1-51.0) % MCV (79.0-92.2) fL MCH (25.7-32.2) pg MCHC (32.3-36.5) g/dL RDW (11.6-14.4) % Plt Count (163-337) x10^3/uL MPV (9.4-12.4) fL Gran % (34.0-67.9) % Immature Gran % (Auto) (0.001-0.429) % Nucleat RBC Rel Count (0.00-0.2) % Eos # (Auto) (0.04-0.54) x10^3/uL Immature Gran # (Auto) (0.001-0.031) x10^3u/L Absolute Lymphs (auto) (1.32-3.57) x10^3/uL Absolute Monos (auto) (0.30-0.82) x10^3/uL Absolute Nucleated RBC (0.00-0.012) x10^3u/L Lymphocytes % (21.8-53.1) % Monocytes % (5.3-12.2) % Eosinophils % (0.8-7.0) % Basophils % (0.2-1.2) % Absolute Granulocytes (1.78-5.38) x10^3/uL Basophils # (0.01-0.08) x10^3/uL Sodium (135-145) mmol/L Potassium (3.5-5.1) mmol/L Chloride (98-107) mmol/L Carbon Dioxide (22-30) mmol/L Anion Gap (5-15) MEQ/L BUN (9-20) mg/dL Creatinine (0.66-1.25) mg/dL Estimated GFR ML/MIN Glucose (74-106) mg/dL Hemoglobin A1c 6.21 H (4.5-6.0) % Calcium (8.4-10.2) mg/dL Magnesium 2.3 (1.6-2.3) mg/dL Total Bilirubin (0.2-1.3) mg/dL AST (17-59) U/L ALT (0-50) U/L Alkaline Phosphatase (38-126) U/L Creatine Kinase (55-170) U/L Troponin I (0.000-0.033) ng/mL NT-Pro-B Natriuret Pep (<300) pg/mL Serum Total Protein (6.3-8.2) g/dL Albumin (3.5-5.0) g/dL PSA Screen 0.483 (0-4) ng/mL Vitamin B12 409 (239-931) pg/mL TSH 3rd Generation 2.602 (0.470-4.680) mIU/L Urine Color (Yellow) Urine Appearance (Clear) Urine pH (4.6-8.0) Ur Specific [place] (1.005-1.030) Urine Protein (Negative) Urine Glucose (UA) (Negative) mg/dL Urine Ketones (Negative) Urine Blood (Negative) Urine Nitrite (Negative) Urine Bilirubin (Negative) Urine Urobilinogen (0.2) mg/dL Ur Leukocyte Esterase (Negative) U Hyaline Cast (Auto) (0-2) /LPF Urine Microscopic RBC (0-5) /HPF Urine Microscopic WBC (0-5) /HPF Ur Epithelial Cells (None Seen) /HPF Urine Bacteria (None Seen) /HPF Urine Culture Reflexed (NO) 09/01/23 09/01/23 Range/Units 15:11 18:50 WBC (4.23-9.07) x10^3/uL RBC (4.63-6.08) x10^6/uL Hgb (13.7-17.5) g/dL Hct (40.1-51.0) % MCV (79.0-92.2) fL MCH (25.7-32.2) pg MCHC (32.3-36.5) g/dL RDW (11.6-14.4) % Plt Count (163-337) x10^3/uL MPV (9.4-12.4) fL Gran % (34.0-67.9) % Immature Gran % (Auto) (0.001-0.429) % Nucleat RBC Rel Count (0.00-0.2) % Eos # (Auto) (0.04-0.54) x10^3/uL Immature Gran # (Auto) (0.001-0.031) x10^3u/L Absolute Lymphs (auto) (1.32-3.57) x10^3/uL Absolute Monos (auto) (0.30-0.82) x10^3/uL Absolute Nucleated RBC (0.00-0.012) x10^3u/L Lymphocytes % (21.8-53.1) % Monocytes % (5.3-12.2) % Eosinophils % (0.8-7.0) % Basophils % (0.2-1.2) % Absolute Granulocytes (1.78-5.38) x10^3/uL Basophils # (0.01-0.08) x10^3/uL Sodium (135-145) mmol/L Potassium (3.5-5.1) mmol/L Chloride (98-107) mmol/L Carbon Dioxide (22-30) mmol/L Anion Gap (5-15) MEQ/L BUN (9-20) mg/dL Creatinine (0.66-1.25) mg/dL Estimated GFR ML/MIN Glucose (74-106) mg/dL Hemoglobin A1c (4.5-6.0) % Calcium (8.4-10.2) mg/dL Magnesium (1.6-2.3) mg/dL Total Bilirubin (0.2-1.3) mg/dL AST (17-59) U/L ALT (0-50) U/L Alkaline Phosphatase (38-126) U/L Creatine Kinase (55-170) U/L Troponin I < 0.012 (0.000-0.033) ng/mL NT-Pro-B Natriuret Pep (<300) pg/mL Serum Total Protein (6.3-8.2) g/dL Albumin (3.5-5.0) g/dL PSA Screen (0-4) ng/mL Vitamin B12 (239-931) pg/mL TSH 3rd Generation (0.470-4.680) mIU/L Urine Color Yellow (Yellow) Urine Appearance Clear (Clear) Urine pH 5.0 (4.6-8.0) Ur Specific [place] 1.020 (1.005-1.030) Urine Protein Negative (Negative) Urine Glucose (UA) Negative (Negative) mg/dL Urine Ketones Trace A (Negative) Urine Blood Negative (Negative) Urine Nitrite Negative (Negative) Urine Bilirubin Negative (Negative) Urine Urobilinogen 0.2 (0.2) mg/dL Ur Leukocyte Esterase Negative (Negative) U Hyaline Cast (Auto) 11-20 (0-2) /LPF Urine Microscopic RBC 0-2 (0-5) /HPF Urine Microscopic WBC 0-2 (0-5) /HPF Ur Epithelial Cells None Seen (None Seen) /HPF Urine Bacteria None Seen (None Seen) /HPF Urine Culture Reflexed NO (NO) - Radiology Impressions Radiology Exams & Impressions: Radiology Procedures Category Date Time Status CHEST 1 VIEW (PORTABLE) Stat Exams 09/01/23 14:46 Completed ECHO W/2D AND DOPPLER [US] Routine Exams 09/01/23 17:15 Ordered - Other Procedures and Tests Respiratory Therapy 09/01/23 17:15 EKG REPEAT IN AM Telemedicine Encounter - Telemedicine Encounter Telemedicine Encounter: "The entirety of this encounter was performed via Telemedicine" This visit was performed using real-time audio and video connection between my location and thepatients locationwith the assistance of a surrogateat the patients location. Written or verbal consent was obtained from the patient/guardian to perform this visit usingsynchrFetchDogtelemedicine technology. Any patient questions regarding the telemedicine interaction were answered. STAN Encounter - STAN Encounter Attestation STAN Encounter Attestation: "IhavepersonallyseenandexaminedFIGG,REJI FERRO andhavediscussed pertinent aspects of their care with Tamra Corley agree with the history, physical exam (any modifications based on my personal exam will be noted below), assessment, and plan as outlined in original note. Please see immediately below for my summary of findings and additional assessment and plan along with any meaningful corrections/explanations to the Subjective/Objective portions of the STAN note will be noted." My portion of the encounter took place via telemedicine. -Patient with h/o of HTN, HLD, describes low intensity left sided chest pain along with poor exercise tolerance for the past 2 days. Has had a negative treadmill stress test in the past few years. No acute EKG findings on admission, trop negative. Will monitor overnight with repeat trops, consult cardiology.
[2023-09-01] MEDS ORDERED: Zofran 4 MG/2 ML VIAL IV PRN (17:15)
[2023-09-01] MEDS: Sodium Chloride 0.9% 1000 ML 1,000 ML IV SCH (17:52)
[2023-09-01 18:39] LABS: MAGNESIUM 2.3 mg/dL (1.6-2.3); TSH, 3RD Generation 2.602 mIU/L (0.470-4.680)
[2023-09-01 19:47] LABS: Prostate Specific Ag,Screen 0.483 ng/mL (0-4)
--- NOTE | 2023-09-02 05:07 | PCM.NOTE ---
Date and Time: 09/02/23 0506 Subjective Assessment: Mr Huggins is a 58 year old male with a pmhx of HTN and HLD that presented to ED 09/01/23 with complaints of chest pain that began initially 2-3 weeks ago. The chest pain was occurring intermittently over the past several weeks but over the past two days has become constant. He describes the pain as pressure-like with associated nausea, shortness of breath, dizziness, and diaphoresis. No radiation. No aggravating/relieving factors. No past cardiac history or prior chest pain. Patient also reports increased fatigue over the past three months, leg cramps, and frequent urination at night. He has had a recent weight loss of 20 pounds with diet and exercise. He states he has been taking diclofenac recently for joint pain. Upon presentation, vitals stable although patient did have BP of 90s/60s. CXR showing no cardiopulmonary processes. EKG NS with no ST elevation/deviation per ED physician read. Lab findings remarkable for normocytic anemia with hgb of 13.3, SLIM with creat at 1.65/bun 30, ALT 95. BNP/ initial troponin WNL. Patient received fluid bolus, ASA, and toradol in ED. 09/01: Met with patient bedside. Endorses continued pressure-like chest pain to left chest. Dizziness has improved some. Repeat EKG with no acute findings. Trops negative. Plan for echo today and cardiology consult. Vitals stable. Labs with noted improvement to creat. Denies fever,cough, sob, abdominal pain, PETERSON, N/V/D. - Review of Systems Constitutional: Fatigue, Weakness Eyes: No Symptoms Ears, Nose, & Throat: No Symptoms Respiratory: No Symptoms Cardiac: Chest Pain Abdominal/Gastrointestinal: No Symptoms Genitourinary Symptoms: No Symptoms Musculoskeletal: No Symptoms Skin: No Symptoms Neurological: Dizziness Psychological: No Symptoms Endocrine: No Symptoms Hematologic/Lymphatic: No Symptoms Immunological/Allergic: No Symptoms Objective Exam General Appearance: no apparent distress Neurologic Exam: alert, oriented x 3, cooperative Skin Exam: normal color Eye Exam: PERRL Ears, Nose, Throat Exam: normal ENT inspection Neck Exam: normal inspection Respiratory Exam: normal breath sounds, lungs clear Cardiovascular Exam: regular rate/rhythm, normal heart sounds Gastrointestinal/Abdomen Exam: soft, normal bowel sounds Extremity Exam: normal inspection Back Exam: normal inspection Male Genitalia Exam: deferred Rectal Exam: deferred Objective Data Vital Signs: Vital Signs - 24 hr Temp Pulse Resp BP BP Pulse Ox 09/02/23 00:00 97.0 F 55 L 18 126/58 94 L 09/01/23 20:00 97.4 F 64 16 144/67 96 09/01/23 17:31 60 16 95 09/01/23 16:32 97.6 F 58 L 20 132/71 94 L 09/01/23 16:07 96 09/01/23 15:30 64 16 104/66 96 09/01/23 15:15 73 19 91/63 96 09/01/23 15:00 72 21 111/75 97 09/01/23 14:50 72 16 98/62 96 09/01/23 14:39 96.7 F 75 104/74 96 Pain Assessment - Last Documented Pain Intensity 1 Pain Scale Used 0-10 Pain Scale Intake and Output: Intake & Output 08/30/23 08/31/23 09/01/23 09/02/23 11:59 11:59 11:59 11:59 Intake Total 923 Output Total 100 Balance 823 Weight 102.6 kg Lab Results: Lab Results-Last 24 Hours 09/01/23 09/01/23 09/01/23 Range/Units 14:39 14:39 14:39 WBC 7.5 (4.23-9.07) x10^3/uL RBC 4.62 L (4.63-6.08) x10^6/uL Hgb 13.3 L (13.7-17.5) g/dL Hct 39.8 L (40.1-51.0) % MCV 86.1 (79.0-92.2) fL MCH 28.8 (25.7-32.2) pg MCHC 33.4 (32.3-36.5) g/dL RDW 13.7 (11.6-14.4) % Plt Count 326 (163-337) x10^3/uL MPV 10.0 (9.4-12.4) fL Gran % 74.2 H (34.0-67.9) % Immature Gran % (Auto) 0.3 (0.001-0.429) % Nucleat RBC Rel Count 0.0 (0.00-0.2) % Eos # (Auto) 0.08 (0.04-0.54) x10^3/uL Immature Gran # (Auto) 0.02 (0.001-0.031) x10^3u/L Absolute Lymphs (auto) 1.21 L (1.32-3.57) x10^3/uL Absolute Monos (auto) 0.58 (0.30-0.82) x10^3/uL Absolute Nucleated RBC 0.00 (0.00-0.012) x10^3u/L Lymphocytes % 16.2 L (21.8-53.1) % Monocytes % 7.8 (5.3-12.2) % Eosinophils % 1.1 (0.8-7.0) % Basophils % 0.4 (0.2-1.2) % Absolute Granulocytes 5.55 H (1.78-5.38) x10^3/uL Basophils # 0.03 (0.01-0.08) x10^3/uL Sodium 138 (135-145) mmol/L Potassium 4.7 (3.5-5.1) mmol/L Chloride 106 (98-107) mmol/L Carbon Dioxide 23 (22-30) mmol/L Anion Gap 13.5 (5-15) MEQ/L BUN 30 H (9-20) mg/dL Creatinine 1.65 H (0.66-1.25) mg/dL Estimated GFR 48.1 ML/MIN Glucose 118 H (74-106) mg/dL Hemoglobin A1c (4.5-6.0) % Calcium 9.7 (8.4-10.2) mg/dL Magnesium (1.6-2.3) mg/dL Total Bilirubin 0.50 (0.2-1.3) mg/dL AST 42 (17-59) U/L ALT 95 H (0-50) U/L Alkaline Phosphatase 75 (38-126) U/L Creatine Kinase 110 (55-170) U/L Troponin I < 0.012 (0.000-0.033) ng/mL NT-Pro-B Natriuret Pep 27.4 (<300) pg/mL Serum Total Protein 7.8 (6.3-8.2) g/dL Albumin 4.6 (3.5-5.0) g/dL PSA Screen (0-4) ng/mL Vitamin B12 (239-931) pg/mL TSH 3rd Generation (0.470-4.680) mIU/L Urine Color (Yellow) Urine Appearance (Clear) Urine pH (4.6-8.0) Ur Specific [place] (1.005-1.030) Urine Protein (Negative) Urine Glucose (UA) (Negative) mg/dL Urine Ketones (Negative) Urine Blood (Negative) Urine Nitrite (Negative) Urine Bilirubin (Negative) Urine Urobilinogen (0.2) mg/dL Ur Leukocyte Esterase (Negative) U Hyaline Cast (Auto) (0-2) /LPF Urine Microscopic RBC (0-5) /HPF Urine Microscopic WBC (0-5) /HPF Ur Epithelial Cells (None Seen) /HPF Urine Bacteria (None Seen) /HPF Urine Culture Reflexed (NO) 09/01/23 09/01/23 09/01/23 Range/Units 14:39 14:39 14:39 WBC (4.23-9.07) x10^3/uL RBC (4.63-6.08) x10^6/uL Hgb (13.7-17.5) g/dL Hct (40.1-51.0) % MCV (79.0-92.2) fL MCH (25.7-32.2) pg MCHC (32.3-36.5) g/dL RDW (11.6-14.4) % Plt Count (163-337) x10^3/uL MPV (9.4-12.4) fL Gran % (34.0-67.9) % Immature Gran % (Auto) (0.001-0.429) % Nucleat RBC Rel Count (0.00-0.2) % Eos # (Auto) (0.04-0.54) x10^3/uL Immature Gran # (Auto) (0.001-0.031) x10^3u/L Absolute Lymphs (auto) (1.32-3.57) x10^3/uL Absolute Monos (auto) (0.30-0.82) x10^3/uL Absolute Nucleated RBC (0.00-0.012) x10^3u/L Lymphocytes % (21.8-53.1) % Monocytes % (5.3-12.2) % Eosinophils % (0.8-7.0) % Basophils % (0.2-1.2) % Absolute Granulocytes (1.78-5.38) x10^3/uL Basophils # (0.01-0.08) x10^3/uL Sodium (135-145) mmol/L Potassium (3.5-5.1) mmol/L Chloride (98-107) mmol/L Carbon Dioxide (22-30) mmol/L Anion Gap (5-15) MEQ/L BUN (9-20) mg/dL Creatinine (0.66-1.25) mg/dL Estimated GFR ML/MIN Glucose (74-106) mg/dL Hemoglobin A1c 6.21 H (4.5-6.0) % Calcium (8.4-10.2) mg/dL Magnesium 2.3 (1.6-2.3) mg/dL Total Bilirubin (0.2-1.3) mg/dL AST (17-59) U/L ALT (0-50) U/L Alkaline Phosphatase (38-126) U/L Creatine Kinase (55-170) U/L Troponin I (0.000-0.033) ng/mL NT-Pro-B Natriuret Pep (<300) pg/mL Serum Total Protein (6.3-8.2) g/dL Albumin (3.5-5.0) g/dL PSA Screen 0.483 (0-4) ng/mL Vitamin B12 409 (239-931) pg/mL TSH 3rd Generation 2.602 (0.470-4.680) mIU/L Urine Color (Yellow) Urine Appearance (Clear) Urine pH (4.6-8.0) Ur Specific [place] (1.005-1.030) Urine Protein (Negative) Urine Glucose (UA) (Negative) mg/dL Urine Ketones (Negative) Urine Blood (Negative) Urine Nitrite (Negative) Urine Bilirubin (Negative) Urine Urobilinogen (0.2) mg/dL Ur Leukocyte Esterase (Negative) U Hyaline Cast (Auto) (0-2) /LPF Urine Microscopic RBC (0-5) /HPF Urine Microscopic WBC (0-5) /HPF Ur Epithelial Cells (None Seen) /HPF Urine Bacteria (None Seen) /HPF Urine Culture Reflexed (NO) 09/01/23 09/01/23 09/01/23 Range/Units 15:11 18:50 23:20 WBC (4.23-9.07) x10^3/uL RBC (4.63-6.08) x10^6/uL Hgb (13.7-17.5) g/dL Hct (40.1-51.0) % MCV (79.0-92.2) fL MCH (25.7-32.2) pg MCHC (32.3-36.5) g/dL RDW (11.6-14.4) % Plt Count (163-337) x10^3/uL MPV (9.4-12.4) fL Gran % (34.0-67.9) % Immature Gran % (Auto) (0.001-0.429) % Nucleat RBC Rel Count (0.00-0.2) % Eos # (Auto) (0.04-0.54) x10^3/uL Immature Gran # (Auto) (0.001-0.031) x10^3u/L Absolute Lymphs (auto) (1.32-3.57) x10^3/uL Absolute Monos (auto) (0.30-0.82) x10^3/uL Absolute Nucleated RBC (0.00-0.012) x10^3u/L Lymphocytes % (21.8-53.1) % Monocytes % (5.3-12.2) % Eosinophils % (0.8-7.0) % Basophils % (0.2-1.2) % Absolute Granulocytes (1.78-5.38) x10^3/uL Basophils # (0.01-0.08) x10^3/uL Sodium (135-145) mmol/L Potassium (3.5-5.1) mmol/L Chloride (98-107) mmol/L Carbon Dioxide (22-30) mmol/L Anion Gap (5-15) MEQ/L BUN (9-20) mg/dL Creatinine (0.66-1.25) mg/dL Estimated GFR ML/MIN Glucose (74-106) mg/dL Hemoglobin A1c (4.5-6.0) % Calcium (8.4-10.2) mg/dL Magnesium (1.6-2.3) mg/dL Total Bilirubin (0.2-1.3) mg/dL AST (17-59) U/L ALT (0-50) U/L Alkaline Phosphatase (38-126) U/L Creatine Kinase (55-170) U/L Troponin I < 0.012 < 0.012 (0.000-0.033) ng/mL NT-Pro-B Natriuret Pep (<300) pg/mL Serum Total Protein (6.3-8.2) g/dL Albumin (3.5-5.0) g/dL PSA Screen (0-4) ng/mL Vitamin B12 (239-931) pg/mL TSH 3rd Generation (0.470-4.680) mIU/L Urine Color Yellow (Yellow) Urine Appearance Clear (Clear) Urine pH 5.0 (4.6-8.0) Ur Specific [place] 1.020 (1.005-1.030) Urine Protein Negative (Negative) Urine Glucose (UA) Negative (Negative) mg/dL Urine Ketones Trace A (Negative) Urine Blood Negative (Negative) Urine Nitrite Negative (Negative) Urine Bilirubin Negative (Negative) Urine Urobilinogen 0.2 (0.2) mg/dL Ur Leukocyte Esterase Negative (Negative) U Hyaline Cast (Auto) 11-20 (0-2) /LPF Urine Microscopic RBC 0-2 (0-5) /HPF Urine Microscopic WBC 0-2 (0-5) /HPF Ur Epithelial Cells None Seen (None Seen) /HPF Urine Bacteria None Seen (None Seen) /HPF Urine Culture Reflexed NO (NO) Radiology Exams: Radiology Procedures Category Date Time Status CHEST 1 VIEW (PORTABLE) Stat Exams 09/01/23 14:46 Completed ECHO W/2D AND DOPPLER [US] Routine Exams 09/01/23 17:15 Ordered Assessment/Plan (1) Chest pain Current Visit: Yes Status: Acute Assessment & Plan: -Repeat EKG in a.m -Initial trops reviewed and WNL, continue series -BNP WNL -cardiology consult -echo -lipid 09/01: -EKG NS with no ST elevation/deviations -trop series negative -lipid panel wnl -TSH wnl -Echo pending -cards consult pending Code(s): R07.9 - CHEST PAIN, UNSPECIFIED (2) SLIM (acute kidney injury) Current Visit: Yes Status: Acute Assessment & Plan: -?secondary to NSAID/hypovolemia -baseline creat around 1 according to past labs -Avoid FRANK/ARB/NSAIDS/ diuretics -IVF -Monitor renal/lytes daily 09/01: -continue to hold FRANK/NSAID -BP stable -IVF -improving Code(s): N17.9 - ACUTE KIDNEY FAILURE, UNSPECIFIED (3) HTN (hypertension) Current Visit: Yes Status: Acute Assessment & Plan: -Stable - noted hypotension in ED, will hold BP meds for now Code(s): I10 - ESSENTIAL (PRIMARY) HYPERTENSION (4) HLD (hyperlipidemia) Current Visit: Yes Status: Acute Assessment & Plan: -continue statin Code(s): E78.5 - HYPERLIPIDEMIA, UNSPECIFIED (5) Nocturia Current Visit: Yes Status: Acute Assessment & Plan: -check ua/a1c/psa 09/01: -UA/A1c/PSA wnl Code(s): R35.1 - NOCTURIA (6) Dizziness Current Visit: Yes Status: Acute Assessment & Plan: -orthostatic vitals -hypotensive on arrival - hold bp meds for now - monitor -IVF -consider CT head if no improvement -strict I&O -Echo 09/01: -Echo pending -dizziness improved -orthostatic vitals negative -cards consult pending VTE: bilateral SCD PPI: protonix Dispo: 1-2 days Code status: full code Code(s): R07.9 - CHEST PAIN, UNSPECIFIED (2) SLIM (acute kidney injury) Current Visit: Yes Status: Acute Code(s): N17.9 - ACUTE KIDNEY FAILURE, UNSPECIFIED (3) HTN (hypertension) Current Visit: Yes Status: Acute Code(s): I10 - ESSENTIAL (PRIMARY) HYPERTENSION (4) HLD (hyperlipidemia) Current Visit: Yes Status: Acute Code(s): E78.5 - HYPERLIPIDEMIA, UNSPECIFIED (5) Nocturia Current Visit: Yes Status: Acute Code(s): R35.1 - NOCTURIA (6) Dizziness Current Visit: Yes Status: Acute Code(s): R42 - DIZZINESS AND GIDDINESS (7) Normocytic anemia Current Visit: Yes Status: Acute Assessment & Plan: -iron studies Code(s): D64.9 - ANEMIA, UNSPECIFIED
[2023-09-02 05:26] LABS: Absolute Neutrophil Ct (ANC) 3.39 x10^3/uL (1.78-5.38); BASOPHIL % 0.2 % (0.2-1.2); Basophil (Absolute #) 0.01 x10^3/uL (0.01-0.08); Eosinophil % 1.5 % (0.8-7.0); Eosinophil (Absolute #) 0.08 x10^3/uL (0.04-0.54); Hematocrit 36.4 % (40.1-51.0); Hemoglobin 11.8 g/dL (13.7-17.5); IMMATURE GRAN # 0.02 x10^3u/L (0.001-0.031); IMMATURE GRAN % 0.4 % (0.001-0.429); Lymphocyte (Absolute #) 1.27 x10^3/uL (1.32-3.57); Lymphocytes % 24.3 % (21.8-53.1); Mean Cell Volume 88.1 fL (79.0-92.2); Mean Corpuscular Hemoglobin 28.6 pg (25.7-32.2); Mean Corpuscular Hgb Concent. 32.4 g/dL (32.3-36.5); Mean Platelet Volume 10.2 fL (9.4-12.4); Monocyte (Absolute #) 0.46 x10^3/uL (0.30-0.82); Monocytes % 8.8 % (5.3-12.2); Neutrophil % 64.8 % (34.0-67.9); Platelet Count 265 x10^3/uL (163-337); Red Blood Count 4.13 x10^6/uL (4.63-6.08); Red Cell Distribution Width 13.9 % (11.6-14.4); White Blood Count 5.2 x10^3/uL (4.23-9.07)
[2023-09-02 05:57] LABS: ALBUMIN 3.7 g/dL (3.5-5.0); ANION GAP 9.9 MEQ/L (5-15); BILIRUBIN,TOTAL 0.5 mg/dL (0.2-1.3); Calcium 9.1 mg/dL (8.4-10.2); Creatinine 1 1.33 mg/dL (0.66-1.25); EST GLOMERULAR FILTRATION RATE 62.3 ML/MIN; MAGNESIUM 2.5 mg/dL (1.6-2.3); Potassium 5.1 mmol/L (3.5-5.1); Total Protein 6.4 g/dL (6.3-8.2)
[2023-09-02] MEDS: ZOCOR 20MG PO SCH (09:14)
[2023-09-02] MEDS ORDERED: NON-FORMULARY ITEM (Atorvastatin Calcium [Atorvastatin Calcium] 20 MG Tablet) PO SCH (10:00)
[2023-09-02 11:57] LABS: Iron 115 ug/dL (49-181); Iron Saturation 47 % (20-39); TIBC 247 ug/dL (261-497)
[2023-09-02 14:23] LABS: Folate (Folic Acid) 4.72 ng/mL (2.76 - >20)
--- NOTE | 2023-09-02 16:17 | PCM.CONS ---
History of Present Illness - Date of Consult Date of Encounter: 09/02/23 Consulting Remodeler: RUBENS VALENZUELA MD Requesting Provider: Attending Provider: ROJAS GAINES MD Primary Care Provider: PCP: VALERIE JORGE Consent was: Given for this tele-med encounter - Consult Narrative Reason for Consult: Chest pain HPI: Patient is a 58M who denies fevers, chills, nausea, vomiting, diarrhea, syncope, presyncope, dysphagia,odynophagia, orthopnea, paroxysmal nocturnal dyspnea, shortness of breath, chest pain, refluxsymptoms, belly pain, dysuria, hematuria, melena, hematochezia, seizures, paralysis, or other neurological changes. All other systems have been reviewed and are negative. cc:: The requesting physician will be sent a copy of the consult. - Past Medical History Past Medical History: Yes Neurological History: No Pertinent History ENT History: No Pertinent History Cardiac History: Hypertension Respiratory History: No Pertinent History Endocrine Medical History: No Pertinent History Musculoskelatal History: Arthritis GI Medical History: No Pertinent History History: No Pertinent History Pyscho-Social History: No Pertinent History Male Reproductive Disorders: No Pertinent History - Past Surgical History Past Surgical History: Yes Neuro Surgical History: No Pertinent History Cardiac History: No Pertinent History Respiratory Surgery: No Pertinent History GI Surgical History: Hernia Repair Genitourinary Surgical Hx: No Pertinent History Musculskeletal Surgical Hx: Orthopedic Surgery Male Surgical History: Vasectomy Other Surgical History: Sinus surgery, shoulder surgery, jonny inguinal hernia repair - Social History Smoking Status: Never smoker Exposure to second hand smoke: No Alcohol: Occasionally Drug Use: none - Social Determinants of Health Will the patient participate in the screening: Yes Do you worry about a steady place to live?: No Do you have any problems with any of the following?: No known problems In the past 12 months,have you had to go without utilities?: No Have you or anyone in your house had to go without enough: No Transportation Issues: No Has anyone in your support network made you feel unsafe?: No Does the patient want assistance with any of the above?: No Medications & Allergies Home Medications: Home Medication List Atorvastatin Calcium 20 mg PO DAILY 01/30/22 [History Confirmed 09/01/23] Amlodipine Besylate/Benazepril [Amlodipine-Benazepril 5-40 mg] 1 cap PO DAILY 09/01/23 [History Confirmed 09/01/23] Diclofenac Sodium 50 mg [Voltaren 50 mg] 75 mg PO DAILY 09/01/23 [History Confirmed 09/01/23] Allergies/Adverse Reactions: Allergies Allergy/AdvReac Type Severity Reaction Status Date / Time No Known Drug Allergies Allergy Verified 09/01/23 14:48 Exam - Vitals Vital Signs: Vital Signs - 24 hr Temp Pulse Resp BP Pulse Ox 09/02/23 16:00 97.3 F 61 16 136/84 98 09/02/23 12:00 97.5 F 56 L 16 123/65 97 09/02/23 07:14 97.5 F 60 16 114/68 95 09/02/23 04:00 97.4 F 53 L 16 108/59 92 L 09/02/23 00:00 97.0 F 55 L 18 126/58 94 L 09/01/23 20:00 97.4 F 64 16 144/67 96 09/01/23 17:31 60 16 95 09/01/23 16:32 97.6 F 58 L 20 132/71 94 L General:: alert and oriented x 4, no acute distress HEENT: EOMI, No JVD Cardiovascular Exam: regular rate/rhythm, normal heart sounds, other (2+ right DP and 1+ left DP pulses), No murmur, No friction rub, No gallop, No edema Respiratory Exam: normal breath sounds SpO2: 98 Gastrointestinal/Abdomen Exam: normal bowel sounds Extremity Exam: No edema 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, appropriate affect, No motor deficits Results Vital Signs: Vital Signs - 24 hr Temp Pulse Resp BP Pulse Ox 09/02/23 16:00 97.3 F 61 16 136/84 98 09/02/23 12:00 97.5 F 56 L 16 123/65 97 09/02/23 07:14 97.5 F 60 16 114/68 95 09/02/23 04:00 97.4 F 53 L 16 108/59 92 L 09/02/23 00:00 97.0 F 55 L 18 126/58 94 L 09/01/23 20:00 97.4 F 64 16 144/67 96 09/01/23 17:31 60 16 95 09/01/23 16:32 97.6 F 58 L 20 132/71 94 L Pain Assessment - Last Documented Pain Intensity 2 Pain Scale Used 0-10 Pain Scale Intake and Output: Intake & Output 08/31/23 09/01/23 09/02/23 09/03/23 11:59 11:59 11:59 11:59 Intake Total 1283 240 Output Total 100 Balance 1183 240 Weight 102.6 kg LAB: I have reviewed the Labs in [facility]. Radiology Exams: Radiology Procedures Category Date Time Status CHEST 1 VIEW (PORTABLE) Stat Exams 09/01/23 14:46 Completed ECHO W/2D AND DOPPLER [US] Routine Exams 09/02/23 07:34 Taken CXR (AP) 09/01/2023: [facility] TRANSTHORACIC ECHOCARDIOGRAM 09/02/2023; 1. Normal biventricular wall thickness, chamber size, and systolic function. 2. Estimated left ventricular ejection fraction is 65%. 3. Normal diastolic function profile. 4. Structurally normal valves without significant regurgitation. 5. Normal pulmonary artery pressure. 6. Normal right atrial pressure. 7. No pericardial effusion. 8. impression: Normal Echocardiogram. Tracing 1 Attestation: I have reviewed this EKG and interpreted as documented below. EKG Narrative: ECGs: 09/02/2023: Sinus bradycardia at 54 bpm. PRWP. 09/01/2023: NSR at 89 bpm. PRWP. Telemetry: Sinus rhythm 56-68 bpm. - ECHO Echo: interpreted by me (09/02/2023: Normal Echocardiogram. LVEF 65%. See radiology exams above.) Multi-Disciplinary Progress Notes: Multi-Disciplinary Progress Notes 09/02/23 16:08 Radiology Note by RUBENS VALENZUELA TRANSTHORACIC ECHOCARDIOGRAM 09/02/2023: 1. Normal biventricular wall thickness, chamber size, and systolic function. 2. Estimated left ventricular ejection fraction is 65%. 3. Normal diastolic function profile. 4. Structurally normal valves without significant regurgitation. 5. Normal pulmonary artery pressure. 6. Normal right atrial pressure. 7. No pericardial effusion. 8. Impression: Normal Echocardiogram. Rubens Valenzuela MD Initialized on 09/02/23 16:08 - END OF NOTE Assessment & Plan (1) Chest pain Current Visit: Yes Status: Acute Assessment & Plan: Noncardiac based on constant 2-day duration without a rise in troponin. Musculos keletal component is present. Code(s): R07.9 - CHEST PAIN, UNSPECIFIED (2) Dyspnea on exertion Current Visit: Yes Status: Acute Assessment & Plan: Gradually worsening over the past few months. Need to evaluate for CAD. OK to do as an outpatient with a HEART SCORE of 3 (low risk). He will need to follow-up with a local extension supervisor. Prefer to evaluate with a coronary CTA though a myocardial perfusion can also be done. Start aspirin 81 mg daily pending results of evaluation. His anemia can also be contributing to symptoms. Code(s): R06.09 - OTHER FORMS OF DYSPNEA (3) Dizziness Current Visit: Yes Status: Acute Assessment & Plan: Appears multifactoral as he also describes orthostatic and vertiginous symptoms. Sinus rate primarily in upper 50s during the day today without medications that suppress the sinus node. Will withhold starting beta-jeremy therapy pending outpatient evaluation with a 24 hour Holter. Code(s): R42 - DIZZINESS AND GIDDINESS (4) HTN (hypertension) Current Visit: Yes Status: Chronic Qualifiers: Hypertension type: primary hypertension Qualified Code(s): I10 - Essential (primary) hypertension Assessment & Plan: With his 20 lb weight loss, his BP may now be too tightly controlled which could contribute to [place] and dizziness. Decrease amlodipine/benazepril to 5/20 mg daily. Start BP diary of home recording BP and HR upon awakening and before supper. Also check and notate on diary during times of dizziness. Bring diary to his extension supervisor appointment. Code(s): I10 - ESSENTIAL (PRIMARY) HYPERTENSION (5) Hypercholesterolemia Current Visit: Yes Status: Chronic Assessment & Plan: Continue current dose of atovastatin. Increase to high intensity statin dosage (Atrovastatin 40 mg nightly) if he is diagnosed with CAD. Code(s): E78.00 - PURE HYPERCHOLESTEROLEMIA, UNSPECIFIED (6) Mild obesity Current Visit: Yes Status: Acute Assessment & Plan: Complemented patient on his 20 lb weigh loss. Continued weight loss is still needed. Recommended a Mediterranean Diet with considerations to advance to a whole food plant based diet. This can help reverse his early DM (Hgb A!c 6.2%). Code(s): E66.9 - OBESITY, UNSPECIFIED - Encounter Encounter: "The entirety of this encounter was performed via Telemedicine using audio and visual " OK for discharge from the cardiac standpoint. Case discussed with RENNY Narayan MD [facility] [phone]
[2023-09-02] MEDS: TYLENOL 325 MG PO PRN (19:48)
[2023-09-03 04:29] VITALS: RESP 16
[2023-09-03 05:00] LABS: Absolute Neutrophil Ct (ANC) 3.89 x10^3/uL (1.78-5.38); BASOPHIL % 0.7 % (0.2-1.2); Basophil (Absolute #) 0.04 x10^3/uL (0.01-0.08); Eosinophil % 1.4 % (0.8-7.0); Eosinophil (Absolute #) 0.08 x10^3/uL (0.04-0.54); Hemoglobin 13.3 g/dL (13.7-17.5); IMMATURE GRAN # 0.02 x10^3u/L (0.001-0.031); IMMATURE GRAN % 0.3 % (0.001-0.429); Lymphocytes % 25.5 % (21.8-53.1); Mean Cell Volume 86.9 fL (79.0-92.2); Mean Corpuscular Hemoglobin 28.2 pg (25.7-32.2); Mean Corpuscular Hgb Concent. 32.4 g/dL (32.3-36.5); Mean Platelet Volume 10.4 fL (9.4-12.4); Monocyte (Absolute #) 0.36 x10^3/uL (0.30-0.82); Monocytes % 6.1 % (5.3-12.2); Platelet Count 274 x10^3/uL (163-337); Red Blood Count 4.72 x10^6/uL (4.63-6.08); Red Cell Distribution Width 13.7 % (11.6-14.4); White Blood Count 5.9 x10^3/uL (4.23-9.07)
[2023-09-03 05:20] LABS: ALBUMIN 4.3 g/dL (3.5-5.0); ANION GAP 13.3 MEQ/L (5-15); BILIRUBIN,TOTAL 0.6 mg/dL (0.2-1.3); Calcium 9.9 mg/dL (8.4-10.2); Creatinine 1 1.14 mg/dL (0.66-1.25); MAGNESIUM 2.4 mg/dL (1.6-2.3); Potassium 4.8 mmol/L (3.5-5.1); Total Protein 7.5 g/dL (6.3-8.2)
[2023-09-03] MEDS: Lotensin PO SCH (08:38)
--- NOTE | 2023-09-03 08:38 | XRAY ---
Indication: Dizziness. Multiple contiguous axial images obtained through the head without contrast. Comparison: None Normal appearing brain parenchyma, ventricles, and bony calvarium. Visualized paranasal sinuses and mastoid air cells are clear. Impression: Normal CT head without contrast exam.
[2023-09-03] MEDS: NORVASC 5 MG PO SCH (08:41)
[2023-09-03 08:56] LABS: IFOB TEST RESULTS NEGATIVE (NEGATIVE)
--- NOTE | 2023-09-03 09:29 | PCM.DS ---
Discharge Summary Date of Admission: 09/01/23 16:27 Date of Discharge: 09/03/23 Admitting Physician: ROJAS GAINES MD Consults: Consults on Case 09/01/23 17:18 Consult Cardiology ROUTINE Primary Care Provider: VALERIE JORGE STEVE Allergies Allergies No Known Drug Allergies Allergy (Verified 09/01/23 14:48) Hospital Summary - Hospital Course Hospital Course: Mr Huggins is a 58 year old male with a pmhx of HTN and HLD that presented to ED 09/01/23 with complaints of chest pain that began initially 2-3 weeks ago. The chest pain was occurring intermittently over the past several weeks but over the past two days has become constant. He describes the pain as pressure-like with associated nausea, shortness of breath, dizziness, and diaphoresis. No radiation. No aggravating/relieving factors. No past cardiac history or prior chest pain. Patient also reports increased fatigue over the past three months, leg cramps, and frequent urination at night. He has had a recent weight loss of 20 pounds with diet and exercise. He states he has been taking diclofenac recently for joint pain. Upon presentation, vitals stable although patient did have BP of 90s/60s. CXR showing no cardiopulmonary processes. EKG and tropronins negative. Lab findings remarkable for normocytic anemia with hgb of 13.3, SLIM with creat at 1.65/bun 30, ALT 95. BNP/ initial troponin WNL. Patient received fluid bolus, ASA, and toradol in ED. Cardiology consulted with recs for 24 hour holter monitor with follow-up with a local vehicle service attendant as his dizziness appears to be multifactoral. Will hold starting a BB for now. Prefer to evaluate with a coronary CTA though a myocardial perfusion can also be done. Start aspirin 81 mg daily pending results of evaluation. Continue current dose of atovastatin. Increase to high intensity statin dosage (Atrovastatin 40 mg nightly) if he is diagnosed with CAD. Patient does have chronic anemia and is at his baseline hemoglobin. Occult stools are negative. Advised OP follow up. With his 20 lb weight loss, his BP may now be too tightly controlled which could contribute to STOVER and dizziness. Decrease amlodipine/benazepril to 5/20 mg daily. Start BP diary of home recording BP and HR upon awakening and before supper. Also check and notate on diary during times of dizziness. Bring diary to his vehicle service attendant appointment. Cleared for discharge from cardiac/medical standpoint. Advised to discontinue NSAID. Discharge Note New Diagnosis: Chest pain New Medications: Change to amlodipinde/benazepril to 5/20mg daily - continue current statin Follow Up: PCP/Cardiology Results pending: Holter Monitor Outpatient testing to order: Holter monitor Latest Assessment & Plan (1) Chest pain Current Visit: Yes Status: Acute Assessment & Plan: -Repeat EKG in a.m -Initial trops reviewed and WNL, continue series -BNP WNL -cardiology consult -echo -lipid 09/01: -EKG NS with no ST elevation/deviations -trop series negative -lipid panel wnl -TSH wnl -Echo pending -cards consult pending 09/02: -Cardiology recs to decrease amlodipine/benazepril to 5/20mg - 24 hour holter monitor with close cardiology follow up -TRANSTHORACIC ECHOCARDIOGRAM 09/02/2023; 1. Normal biventricular wall thickness, chamber size, and systolic function. 2. Estimated left ventricular ejection fraction is 65%. 3. Normal diastolic function profile. 4. Structurally normal valves without significant regurgitation. 5. Normal pulmonary artery pressure. 6. Normal right atrial pressure. 7. No pericardial effusion. 8. impression: Normal Echocardiogram. -ECGs: 09/02/2023: Sinus bradycardia at 54 bpm. PRWP. 09/01/2023: NSR at 89 bpm. PRWP. Code(s): R07.9 - CHEST PAIN, UNSPECIFIED (2) SLIM (acute kidney injury) Current Visit: Yes Status: Acute Assessment & Plan: -?secondary to NSAID/hypovolemia -baseline creat around 1 according to past labs -Avoid FRANK/ARB/NSAIDS/ diuretics -IVF -Monitor renal/lytes daily 09/01: -continue to hold FRANK/NSAID -BP stable -IVF -improving 09/02: -resolved Code(s): N17.9 - ACUTE KIDNEY FAILURE, UNSPECIFIED (3) HTN (hypertension) Current Visit: Yes Status: Acute Assessment & Plan: -Stable - noted hypotension in ED, will hold BP meds for now 09/02: -Cardiology recs to decrease amlodipine/benazepril to 5/20mg -Recent weight loss of 20 lb weight, could be contributing to his dyspnea/dizziness -his BP may now be too tightly controlled -Pt advised to keep BP and event log for PCP/cards follow up Code(s): I10 - ESSENTIAL (PRIMARY) HYPERTENSION (4) HLD (hyperlipidemia) Current Visit: Yes Status: Acute Assessment & Plan: -continue statin Code(s): E78.5 - HYPERLIPIDEMIA, UNSPECIFIED (5) Nocturia Current Visit: Yes Status: Acute Assessment & Plan: -check ua/a1c/psa 09/01: -UA/A1c/PSA wnl Code(s): R35.1 - NOCTURIA (6) Dizziness Current Visit: Yes Status: Acute Assessment & Plan: -orthostatic vitals -hypotensive on arrival - hold bp meds for now - monitor -IVF -consider CT head if no improvement -strict I&O -Echo 09/01: -Echo pending -dizziness improved -orthostatic vitals negative -cards consult pending 09/02: -see plan for chest pain/HTN ##Anemia -Iron sat at 47%, ferritin 135 - occult stools negative -Appears chronic and at baseline after reviewing labs going back to 2014 -Follow up with PCP OP VTE: bilateral SCD PPI: protonix Dispo: 1-2 days Code status: full code I spent 35 minutes [id number] with the patient on the day of discharge performing discharge exam, discussing hospital stay and discharge instructions with patient and caregivers, preparation of discharge records, prescriptions & referral forms and addressing any questions/concerns the patient had as documented above. - Vitals & Intake/Output Vital Signs: Vital Signs Temperature 97.8 F 09/03/23 06:42 Pulse Rate 60 09/03/23 06:42 Respiratory Rate 16 09/03/23 06:42 Blood Pressure 142/84 09/03/23 06:42 O2 Sat by Pulse Oximetry 94 L 09/03/23 06:42 Intake & Output: Intake & Output 08/31/23 09/01/23 09/02/23 09/03/23 11:59 11:59 11:59 11:59 Intake Total 1283 1920 Output Total 100 Balance 1183 1920 Weight 102.6 kg - Lab Result Diagrams: 09/03/23 04:25 09/03/23 04:25 Lab Results-Last 24 Hrs: Lab Results-Last 24 Hours 07/01/1509/02/23 09/02/23 Range/Units 05:22 05:22 17:38 WBC (4.23-9.07) x10^3/uL RBC (4.63-6.08) x10^6/uL Hgb 13.0 L (13.7-17.5) g/dL Hct 40.0 L (40.1-51.0) % MCV (79.0-92.2) fL MCH (25.7-32.2) pg MCHC (32.3-36.5) g/dL RDW (11.6-14.4) % Plt Count (163-337) x10^3/uL MPV (9.4-12.4) fL Gran % (34.0-67.9) % Immature Gran % (Auto) (0.001-0.429) % Nucleat RBC Rel Count (0.00-0.2) % Eos # (Auto) (0.04-0.54) x10^3/uL Immature Gran # (Auto) (0.001-0.031) x10^3u/L Absolute Lymphs (auto) (1.32-3.57) x10^3/uL Absolute Monos (auto) (0.30-0.82) x10^3/uL Absolute Nucleated RBC (0.00-0.012) x10^3u/L Lymphocytes % (21.8-53.1) % Monocytes % (5.3-12.2) % Eosinophils % (0.8-7.0) % Basophils % (0.2-1.2) % Absolute Granulocytes (1.78-5.38) x10^3/uL Basophils # (0.01-0.08) x10^3/uL Sodium (135-145) mmol/L Potassium (3.5-5.1) mmol/L Chloride (98-107) mmol/L Carbon Dioxide (22-30) mmol/L Anion Gap (5-15) MEQ/L BUN (9-20) mg/dL Creatinine (0.66-1.25) mg/dL Estimated GFR ML/MIN Glucose (74-106) mg/dL Calcium (8.4-10.2) mg/dL Magnesium (1.6-2.3) mg/dL Iron 115 (49-181) ug/dL TIBC 247 L (261-497) ug/dL Iron Saturation 47 H (20-39) % Ferritin 135 (17.9-464) ng/mL Total Bilirubin (0.2-1.3) mg/dL AST (17-59) U/L ALT (0-50) U/L Alkaline Phosphatase (38-126) U/L Serum Total Protein (6.3-8.2) g/dL Albumin (3.5-5.0) g/dL Vitamin B12 344 (239-931) pg/mL Folic Acid 4.72 (2.76 - >20) ng/mL Stl Occult Blood (IFOB) (NEGATIVE) 09/03/23 09/03/23 09/03/23 Range/Units 04:25 04:25 08:56 WBC 5.9 (4.23-9.07) x10^3/uL RBC 4.72 (4.63-6.08) x10^6/uL Hgb 13.3 L (13.7-17.5) g/dL Hct 41.0 (40.1-51.0) % MCV 86.9 (79.0-92.2) fL MCH 28.2 (25.7-32.2) pg MCHC 32.4 (32.3-36.5) g/dL RDW 13.7 (11.6-14.4) % Plt Count 274 (163-337) x10^3/uL MPV 10.4 (9.4-12.4) fL Gran % 66.0 (34.0-67.9) % Immature Gran % (Auto) 0.3 (0.001-0.429) % Nucleat RBC Rel Count 0.0 (0.00-0.2) % Eos # (Auto) 0.08 (0.04-0.54) x10^3/uL Immature Gran # (Auto) 0.02 (0.001-0.031) x10^3u/L Absolute Lymphs (auto) 1.50 (1.32-3.57) x10^3/uL Absolute Monos (auto) 0.36 (0.30-0.82) x10^3/uL Absolute Nucleated RBC 0.00 (0.00-0.012) x10^3u/L Lymphocytes % 25.5 (21.8-53.1) % Monocytes % 6.1 (5.3-12.2) % Eosinophils % 1.4 (0.8-7.0) % Basophils % 0.7 (0.2-1.2) % Absolute Granulocytes 3.89 (1.78-5.38) x10^3/uL Basophils # 0.04 (0.01-0.08) x10^3/uL Sodium 138 (135-145) mmol/L Potassium 4.8 (3.5-5.1) mmol/L Chloride 106 (98-107) mmol/L Carbon Dioxide 24 (22-30) mmol/L Anion Gap 13.3 (5-15) MEQ/L BUN 24 H (9-20) mg/dL Creatinine 1.14 (0.66-1.25) mg/dL Estimated GFR 75.0 ML/MIN Glucose 94 (74-106) mg/dL Calcium 9.9 (8.4-10.2) mg/dL Magnesium 2.4 H (1.6-2.3) mg/dL Iron (49-181) ug/dL TIBC (261-497) ug/dL Iron Saturation (20-39) % Ferritin (17.9-464) ng/mL Total Bilirubin 0.60 (0.2-1.3) mg/dL AST 38 (17-59) U/L ALT 82 H (0-50) U/L Alkaline Phosphatase 79 (38-126) U/L Serum Total Protein 7.5 (6.3-8.2) g/dL Albumin 4.3 (3.5-5.0) g/dL Vitamin B12 (239-931) pg/mL Folic Acid (2.76 - >20) ng/mL Stl Occult Blood (IFOB) NEGATIVE (NEGATIVE) - Radiology Exams Ordered Rad Exams-Entire Visit: Radiology Procedures Category Date Time Status CHEST 1 VIEW (PORTABLE) Stat Exams 09/01/23 14:46 Completed ECHO W/2D AND DOPPLER [US] Routine Exams 09/02/23 07:34 Taken HEAD WITHOUT CONTRAST [CT] Urgent Exams 09/02/23 16:19 Completed - Procedures and Test Procedures and Tests throughout Hospitalization: Therapy Orders & Screens 09/01/23 17:15 EKG REPEAT IN AM Comment: Diagnosis: chest pain Respiratory Therapy Consult ONCE Comment: Reason For Exam: Diagnosis: chest pain Discharge Exam General Appearance: no apparent distress Neurologic Exam: alert, oriented x 3, cooperative Eye Exam: PERRL Ears, Nose, Throat Exam: normal ENT inspection Neck Exam: normal inspection Respiratory Exam: normal breath sounds, lungs clear Cardiovascular Exam: regular rate/rhythm, normal heart sounds Gastrointestinal/Abdomen Exam: soft, normal bowel sounds Male Genitalia Exam: deferred Rectal Exam: deferred Back Exam: normal inspection Extremity Exam: normal inspection Skin Exam: normal color Final Diagnosis/Problem List - Final Discharge Diagnosis/Problem (1) Chest pain Current Visit: Yes Status: Acute Code(s): R07.9 - CHEST PAIN, UNSPECIFIED (2) SLIM (acute kidney injury) Current Visit: Yes Status: Resolved Code(s): N17.9 - ACUTE KIDNEY FAILURE, UNSPECIFIED (3) HTN (hypertension) Current Visit: Yes Status: Resolved Code(s): I10 - ESSENTIAL (PRIMARY) HYPERTENSION (4) HLD (hyperlipidemia) Current Visit: Yes Status: Chronic Code(s): E78.5 - HYPERLIPIDEMIA, UNSPECIFIED (5) Nocturia Current Visit: Yes Status: Chronic Code(s): R35.1 - NOCTURIA (6) Dizziness Current Visit: Yes Status: Chronic Code(s): R42 - DIZZINESS AND GIDDINESS (7) Normocytic anemia Current Visit: Yes Status: Chronic Code(s): D64.9 - ANEMIA, UNSPECIFIED - Discharge Disposition: Home, Self-Care Condition: Stable Prescriptions: New Amlodipine Besylate/Benazepril [Amlodipine-Benazepril 5-20 mg] 1 each PO DAILY 30 Days #30 cap Continue Atorvastatin Calcium 20 mg PO DAILY Discontinued Amlodipine Besylate/Benazepril [Amlodipine-Benazepril 5-40 mg] 1 cap PO DAILY Diclofenac Sodium 50 mg [Voltaren 50 mg] 75 mg PO DAILY Instructions: High cholesterol, Ambulatory heart monitoring Additional Instructions: KEEP A LOG OF BLOOD PRESSURES AT LEAST TWICE DAILY (MORNING AND EVENING). LOG ANYTIME YOU HAVE AN "EVENT" AND DOCUMENT THE TIME, SYMPTOMS, AND BLOOD PRESSURE. ONCE DAILY CHECK ORTHOSTATIC BLOOD PRESSURES: LYING, SITTING AND STANDING. TAKE LOG WITH YOU TO FOLLOW UP APPOINTMENTS. Follow up with: SHAWN JOYA [CONSULTING PHYSICIAN] - VALERIE JORGE MD [Primary Care Provider] - 09/13/23 2:15 pm
[2023-09-03 11:49] VITALS: BP 128/69; PULSE 63; TEMP 97.9; O2SAT 98
== END 2023-09-03 11:50 | disposition home or self-care (01) ==
LOC: ED 14:37 → MED SURG 16:27
PROVIDERS: ADMIT Internal Medicine; ATTEND Internal Medicine
DX: R07.9 Chest pain, unspecified (principal); R06.09 Other forms of dyspnea; R42 Dizziness and giddiness; I10 Essential (primary) hypertension; E78.00 Pure hypercholesterolemia, unspecified; E66.9 Obesity, unspecified; D64.9 Anemia, unspecified; N17.9 Acute kidney failure, unspecified; E78.5 Hyperlipidemia, unspecified; R35.1 Nocturia; Z79.899 Other long term (current) drug therapy
CPT/HCPCS: 36000; 36415; 70450; 71045; 80053; 80061; 81001; 82274; 82550; 82607; 82728; 82746; 83036; 83540; 83550; 83721; 83735; 83880; 84443; 84484; 85014; 85018; 85025; 93005; 93041; 93306; 96374; 99285; G0103; Q3014; 93268; J1885; A9270-GY; G0328; G0378